=== PATIENT | female | born 1945 | race Caucasian/White ===

== ENCOUNTER → 2016-11-26 | Outpatient (CLI) | payer MEDICARE, BC, OTHER ==
[~2016-11-26] VITALS: Ht 154.9 cm; Wt 72.6 kg
[~2016-11-26] MED LIST: /NITR4TASL SL; AMIT50TA PO; ASPI1TAB PO; ASPI325T PO; ASPI81TA2 PO; BACL10TA2 PO; CLON0.5T PO; CLON2TAB PO; IMDU30TA PO; ISOS30TAB PO; LANS15TA3 PO; LEVOTAB10 PO; LIDOCAINE 2% INJ 100 MG/5 ML SDV (FOR ANES.) As Ordered ONE; LIPI80TA PO; LOPR50TA PO; MEGA RED PO; METO25TA4 PO; NITR4TASL SL; NS 1,000 ML IV ONE; OXYC15TA76 PO; PROPOFOL 200 MG/20 ML VIAL As Ordered ONE; RED600TA PO; WELL100T2 PO; thyroid medicine
--- NOTE | 2016-11-26 09:35 | ROOR ---
Patient Name: Anabel Bautista Procedure Date: 11/26/2016 9:09 AM Date of : 1945 Age: 70 Room: [facility] Gender: Female Note Status: Finalized Procedure: Upper GI endoscopy Indications: Dysphagia, Abnormal cine-esophagram Providers: Andrew SAEZ MD Referring MD: FIGUEROA CARDOZA MD Requesting Provider: Medicines: Monitored Anesthesia Care Complications: No immediate complications. Procedure: Pre-Anesthesia Assessment: - The heart rate, respiratory rate, oxygen saturations, blood pressure, adequacy of pulmonary ventilation, and response to care were monitored throughout the procedure. The Endoscope was introduced through the mouth, and advanced to the second part of duodenum. The upper GI endoscopy was accomplished without difficulty. The patient tolerated the procedure well. Findings: A widely patent Schatzki ring (acquired) was found at the gastroesophageal junction. A TTS dilator was passed through the scope. Dilation with a 15-16.5-18 mm balloon dilator was performed to 18 mm. The dilation site was examined and showed no change. This was biopsied with a cold forceps for histology. Mildly severe esophagitis was found at the gastroesophageal junction. Biopsies were taken with a cold forceps for histology. Mild inflammation characterized by erythema was found in the gastric antrum. Biopsies were taken with a cold forceps for histology. Small Hiatal Hernia. The examined duodenum was normal. Impression: - Widely patent Schatzki ring (of dubious significance). Dilated and Biopsied (to fracture ring). - Mildly severe distal esophagitis. Biopsied. - Mild Gastritis. Biopsied. - Small Hiatal Hernia. - Normal examined duodenum. Recommendation: - Telephone endoscopist for pathology results in 2 weeks. - Use Prilosec (omeprazole) 40 mg PO daily. - Observe patient's clinical course. Andrew Saez MD Andrew SAEZ MD 11/26/2016 9:35:21 AM This report has been signed electronically. Number of Addenda: 0 Note Initiated On: 11/26/2016 9:09 AM Estimated Blood Loss: Estimated blood loss: none.
[2016-11-26 10:05] VITALS: BP 155/64
== END | disposition home or self-care (01) ==
LOC: M OPP 07:47
PROVIDERS: ATTEND Internal Medicine Gastroenterology
DX: R93.3 Abnormal findings on diagnostic imaging of other parts of digestive tract (principal); R13.10 Dysphagia, unspecified; K22.2 Esophageal obstruction; K44.9 Diaphragmatic hernia without obstruction or gangrene; K20.9 Esophagitis, unspecified; K29.70 Gastritis, unspecified, without bleeding; K21.9 Gastro-esophageal reflux disease without esophagitis; R07.89 Other chest pain; I25.10 Atherosclerotic heart disease of native coronary artery without angina pectoris; E78.5 Hyperlipidemia, unspecified; I10 Essential (primary) hypertension; I72.8 Aneurysm of other specified arteries; E03.9 Hypothyroidism, unspecified; R12 Heartburn; R06.02 Shortness of breath; M19.90 Unspecified osteoarthritis, unspecified site; M54.9 Dorsalgia, unspecified; M32.9 Systemic lupus erythematosus, unspecified; R21 Rash and other nonspecific skin eruption; R51 Headache; Z78.0 Asymptomatic menopausal state; R06.83 Snoring; M72.2 Plantar fascial fibromatosis; Z95.1 Presence of aortocoronary bypass graft; Z88.2 Allergy status to sulfonamides; Z91.018 Allergy to other foods; Z91.010 Allergy to peanuts; Z79.82 Long term (current) use of aspirin; Z79.899 Other long term (current) drug therapy

== ENCOUNTER → 2017-02-17 | Outpatient (REF) | payer MEDICARE, BC, OTHER ==
[~2017-02-17] MED LIST changes: -LIDOCAINE 2% INJ 100 MG/5 ML SDV (FOR ANES.) As Ordered ONE; -NS 1,000 ML IV ONE; -PROPOFOL 200 MG/20 ML VIAL As Ordered ONE
== END ==
LOC: M LAB REF 16:05
PROVIDERS: ATTEND Physician Assistant
DX: R30.0 Dysuria (principal)

== ENCOUNTER 2017-10-20 08:15 | Emergency (ER) | payer MEDICARE, BC, OTHER ==
[2017-10-20 08:39] LABS: BASO % 0.5 % (0.0-1.0); EOS # 0.3 10^3/uL (0.0-0.50); HEMATOCRIT 42.3 % (36.0-47.0); HEMOGLOBIN 13.7 g/dl (12.0-15.5); IMMATURE GRANULOCYTE % 0.2 % (0-3.0); LYMPH # 2.8 10^3/uL (1.5-4.5); LYMPH % 33.3 % (24.0-44.0); MEAN CORPUSCULAR HEMOGLOBIN 21.8 pg (27.0-33.0); MEAN CORPUSCULAR HGB CONC 32.4 g/dl (32.0-36.5); MEAN CORPUSCULAR VOLUME 67.4 fl (80.0-96.0); MONO # 0.6 10^3/uL (0.0-0.8); MONO % 7.5 % (0.0-5.0); NEUTROPHILS # 4.6 10^3/uL (1.8-7.7); NEUTROPHILS % 55.5 % (36.0-66.0); PLATELET COUNT, AUTOMATED 203 10^3/uL (150-450); RED BLOOD COUNT 6.28 10^6/uL (4.00-5.40); RED CELL DISTRIBUTION WIDTH 21.8 % (11.5-14.5); WHITE BLOOD COUNT 8.3 10^3/uL (4.0-10.0)
[2017-10-20] MEDS: MORPHINE 2 MG/ML 1ML SYRINGE (J2270) IV (08:46)
[2017-10-20 08:48] LABS: INR 1.05; PROTHROMBIN TIME 13.8 SECONDS (12.4-14.5)
[2017-10-20 08:58] LABS: ALBUMIN 3.5 GM/DL (3.2-5.2); ALBUMIN/GLOBULIN RATIO 1.03 (1.00-1.93); ALKALINE PHOSPHATASE 84 U/L (45-117); ALT/SGPT 24 U/L (12-78); ANION GAP 9 MEQ/L (8-16); AST/SGOT 20 U/L (7-37); BILIRUBIN,DIRECT 0.2 MG/DL (0.0-0.2); BILIRUBIN,TOTAL 0.6 MG/DL (0.2-1.0); BLOOD UREA NITROGEN 8 MG/DL (7-18); CALCIUM LEVEL 8.7 MG/DL (8.8-10.2); CARBON DIOXIDE LEVEL 24 MEQ/L (21-32); CHLORIDE LEVEL 107 MEQ/L (98-107); CPK CREATINE PHOSPHOKINASE 34 U/L (26-192); CREATININE FOR GFR 0.79 MG/DL (0.55-1.30); GLOMERULAR FILTRATION RATE > 60.0 (>39); GLUCOSE, FASTING 90 MG/DL (70-100); POTASSIUM SERUM 4.2 MEQ/L (3.5-5.1); SODIUM LEVEL 140 MEQ/L (136-145); TOTAL PROTEIN 6.9 GM/DL (6.4-8.2); TROPONIN I < 0.02 NG/ML (< 0.10)
[2017-10-20 09:04] LABS: CK-MB VALUE MASS < 1.0 NG/ML (<3.6); MB/CK RELATIVE INDEX 2.94 (< OR =4); THYROID STIMULATING HORMONE 0.825 uIU/ML (0.358-3.740)
[2017-10-20] MEDS: ONDANSETRON 4MG/2ML VIAL (J2405) IV (09:23)
[2017-10-20] MEDS ORDERED: ISOVUE-370 76% 100ML VIAL (Q9967) As Ordered (10:16)
[2017-10-20 11:42] LABS: LIPASE 122 U/L (73-393)
[2017-10-20 14:21] LABS: CK-MB VALUE MASS < 1.0 NG/ML (<3.6); CPK CREATINE PHOSPHOKINASE 30 U/L (26-192); MB/CK RELATIVE INDEX 3.33 (< OR =4); TROPONIN I < 0.02 NG/ML (< 0.10)
[2017-10-20] MEDS: PERCOCET 5MG/325MG TAB PO (15:14)
== END 2017-10-20 15:15 | disposition home or self-care (01) ==
LOC: M ED 08:15
DX: R07.9 Chest pain, unspecified (principal); R00.1 Bradycardia, unspecified; I51.7 Cardiomegaly; I25.10 Atherosclerotic heart disease of native coronary artery without angina pectoris; I25.2 Old myocardial infarction; G89.29 Other chronic pain; M54.9 Dorsalgia, unspecified; Z95.1 Presence of aortocoronary bypass graft; Z82.49 Family history of ischemic heart disease and other diseases of the circulatory system; Z79.82 Long term (current) use of aspirin; Z79.899 Other long term (current) drug therapy; Z91.010 Allergy to peanuts; Z88.2 Allergy status to sulfonamides
CPT/HCPCS: J2405

== ENCOUNTER 2018-05-21 19:04 | Emergency (ER) | payer MEDICARE, BC, OTHER ==
[~2018-05-21 19:04] MED LIST changes: +AMIT10TA PO; +AMLO5TAB6 PO; +BUPR300T34 PO; -CLON0.5T PO; +CLON0.5T8 PO; +NITR0.3S4 SL; +OMEP40CA2 PO; +OXYC10TA12 PO
[2018-05-21] MEDS ORDERED: CLON0.5T8 (19:13)
[2018-05-21] MEDS ORDERED: GABA-843 (19:13)
[2018-05-21] MEDS ORDERED: hydrALAZINE INJ 20 MG/ML VIAL IV ONE ×2 (19:45→21:00)
[2018-05-21] MEDS ORDERED: GI COCKTAIL 50ML BTL(HYOSCYAMINE/MAALOX/LIDOCAINE VISCOUS)(1:3:1) PO ONE (19:45)
[2018-05-21 19:52] LABS: BASO # 0.1 10^3/uL (0.0-0.2); BASO % 0.7 % (0.0-1.0); EOS # 0.3 10^3/uL (0.0-0.50); EOS % 3.2 % (0.0-3.0); HEMATOCRIT 41.8 % (36.0-47.0); HEMOGLOBIN 13.3 g/dl (12.0-15.5); LYMPH # 3.2 10^3/uL (1.5-4.5); LYMPH % 32.7 % (24.0-44.0); MEAN CORPUSCULAR HEMOGLOBIN 21.2 pg (27.0-33.0); MEAN CORPUSCULAR HGB CONC 31.8 g/dl (32.0-36.5); MEAN CORPUSCULAR VOLUME 66.6 fl (80.0-96.0); MONO # 0.9 10^3/uL (0.0-0.8); MONO % 8.6 % (0.0-5.0); NEUTROPHILS # 5.4 10^3/uL (1.8-7.7); NEUTROPHILS % 54.4 % (36.0-66.0); PLATELET COUNT, AUTOMATED 222 10^3/uL (150-450); RED BLOOD COUNT 6.28 10^6/uL (4.00-5.40); WHITE BLOOD COUNT 9.9 10^3/uL (4.0-10.0)
--- NOTE | 2018-05-21 20:11 | REP ---
Chest x-ray: Two views. History: Chest pain. Comparison chest x-ray: October 20, 2017. Findings: Median sternotomy clamps are noted as before. The lungs are symmetrically aerated and free of infiltrate. Lesser level of inspiration on today's chest x-ray. Pleural angles are sharp. Heart size is normal. There are clips in the right upper quadrant. Impression: Lesser level of inspiration on today's PA chest x-ray. No acute disease. Electronically Signed by Wagner Paez MD 05/21/2018 08:02 P
[2018-05-21 20:23] LABS: BLOOD UREA NITROGEN 9 MG/DL (7-18); CALCIUM LEVEL 9.1 MG/DL (8.8-10.2); CARBON DIOXIDE LEVEL 25 MEQ/L (21-32); CHLORIDE LEVEL 104 MEQ/L (98-107); CPK CREATINE PHOSPHOKINASE 39 U/L (26-192); CREATININE FOR GFR 0.78 MG/DL (0.55-1.30); GLOMERULAR FILTRATION RATE > 60.0 (>39); GLUCOSE, FASTING 87 MG/DL (70-100); MB/CK RELATIVE INDEX 2.82 (< OR =4); NT-PRO BNP 201 PG/ML (<125); POTASSIUM SERUM 4.5 MEQ/L (3.5-5.1); SODIUM LEVEL 140 MEQ/L (136-145); TROPONIN I < 0.02 NG/ML (< 0.10)
[2018-05-21 21:11] VITALS: BP 182/86
[2018-05-21 21:45] VITALS: BP 137/64
[2018-05-21] MEDS ORDERED: FAMOTIDINE 20 MG TAB PO ONE (21:45)
--- NOTE | 2018-05-22 14:42 | ECGEPIP ---
Stationary ECG Study [facility] - ED Test Date: 2018-05-21 Pat Name: CORIE BRIGHT Department: Room: - Gender: F [employer]: af : 1945 Requested By: JESUS Soliz Order Number: [id number] Reading MD: Michelle Pringle Measurements Intervals [place] Rate: 52 P: 2 [place]: 148 QRS: -18 QRSD: 95 T: 48 QT: 423 QTc: 396 Interpretive Statements SINUS BRADYCARDIA MINIMAL VOLTAGE CRITERIA FOR LVH, CONSIDER NORMAL VARIANT INFERIOR MYOCARDIAL INFARCTION, OF INDETERMINATE AGE NSTTW ABNORMALITY SIMILAR 10/20/17 Electronically Signed On 05-22-2018 14:41:59 EST by Michelle Pringle
== END 2018-05-21 22:37 | disposition home or self-care (01) ==
LOC: M ED 19:04
DX: R07.9 Chest pain, unspecified (principal); R06.02 Shortness of breath; I10 Essential (primary) hypertension; I25.10 Atherosclerotic heart disease of native coronary artery without angina pectoris; M32.9 Systemic lupus erythematosus, unspecified; Z88.2 Allergy status to sulfonamides; Z88.8 Allergy status to other drugs, medicaments and biological substances

== ENCOUNTER 2019-05-04 17:34 | Inpatient (IN) | payer MEDICARE, BC, OTHER ==
[~2019-05-04] VITALS: Ht 154.9 cm; Wt 65.9 kg
[~2019-05-04 17:34] MED LIST changes: -/NITR4TASL SL; -ASPI1TAB PO; +ASPI81TA26 PO; +CLON0.5T2 PO; -CLON0.5T8 PO; +GABA-843; +NITR0.4S SL; -OMEP40CA2 PO; +OMEP40CA97 PO
[2019-05-04] MEDS ORDERED: LABETALOL HCL 100 MG/20 ML VIAL IV STA ×2 (18:23→18:59)
[2019-05-04] MEDS ORDERED: LABETALOL 100 MG TAB PO ONE (18:30)
[2019-05-04] MEDS: NS 1,000 ML IV SCH (18:48)
--- NOTE | 2019-05-04 19:14 | REPVR ---
PROCEDURE INFORMATION: Exam: CT Head Without Contrast Exam date and time: 05/04/2019 6:04 PM Age: 73 years old Clinical indication: Altered mental status/memory loss; Confusion or disorientation TECHNIQUE: Imaging protocol: Computed tomography of the head without contrast. Radiation optimization: All CT scans at this facility use at least one of these dose optimization techniques: automated exposure control; mA and/or kV adjustment per patient size (includes targeted exams where dose is matched to clinical indication); or iterative reconstruction. COMPARISON: CT Head without contrast 05/10/2012 10:55 PM FINDINGS: Brain: Mild volume loss. No hemorrhage. Unremarkable white matter for the patient's age. No mass effect. No evolving territorial infarct. Ventricles: No ventriculomegaly. Bones/joints: No acute fracture seen. Severe degenerative changes of the left temporomandibular joint. Sinuses: Visualized sinuses are unremarkable. No fluid levels. Mastoid air cells: Visualized mastoid air cells are well aerated. Soft tissues: Unremarkable. IMPRESSION: No acute intracranial abnormality seen. Electronically signed by: Elida Apple On 05/04/2019 19:14:08 PM
[2019-05-04] MEDS ORDERED: PILL CUTTER 1 EACH XX ONE (19:54)
[2019-05-04 20:11] LABS: BASO % 0.5 % (0.0-1.0); EOS # 0.1 10^3/uL (0.0-0.5); EOS % 0.8 % (0.0-3.0); HEMATOCRIT 40.9 % (36.0-47.0); HEMOGLOBIN 12.6 g/dl (12.0-15.5); LYMPH % 30.5 % (24.0-44.0); MEAN CORPUSCULAR HGB CONC 30.8 g/dl (32.0-36.5); MEAN CORPUSCULAR VOLUME 68.3 fl (80.0-96.0); MONO # 0.5 10^3/uL (0.0-0.8); MONO % 6.8 % (0.0-5.0); NEUTROPHILS # 4.1 10^3/uL (1.5-8.5); NEUTROPHILS % 60.9 % (36.0-66.0); PLATELET COUNT, AUTOMATED 120 10^3/uL (150-450); RED BLOOD COUNT 5.99 10^6/uL (4.00-5.40); WHITE BLOOD COUNT 6.6 10^3/uL (4.0-10.0)
[2019-05-04 21:00] LABS: AMPHETAMINES LEVEL URINE NEGATIVE (NEGATIVE); BARBITURATES URINE NEGATIVE (NEGATIVE); BENZODIAZEPINES URINE NEGATIVE (NEGATIVE); CANNABINOIDS URINE NEGATIVE (NEGATIVE); COCAINE METABOLITE URINE NEGATIVE (NEGATIVE); METHADONE URINE NEGATIVE (NEGATIVE); OPIATES URINE POSITIVE (NEGATIVE); PHENCYCLIDINE URINE NEGATIVE (NEGATIVE)
[2019-05-04 21:00] LABS: ACETAMINOPHEN LEVEL 6.9 UG/ML (10.0-30.0); ALBUMIN 3.1 GM/DL (3.2-5.2); ALT/SGPT 31 U/L (12-78); BILIRUBIN,DIRECT 0.2 MG/DL (0.0-0.2); BILIRUBIN,TOTAL 0.6 MG/DL (0.2-1.0); BLOOD UREA NITROGEN 12 MG/DL (7-18); CALCIUM LEVEL 7.8 MG/DL (8.8-10.2); CARBON DIOXIDE LEVEL 23 MEQ/L (21-32); CHLORIDE LEVEL 109 MEQ/L (98-107); CK-MB VALUE MASS 1.4 NG/ML (<3.6); CPK CREATINE PHOSPHOKINASE 26 U/L (26-192); CREATININE FOR GFR 0.68 MG/DL (0.55-1.30); GLOMERULAR FILTRATION RATE > 60.0 (>39); GLUCOSE, FASTING 87 MG/DL (70-100); MB/CK RELATIVE INDEX 5.38 (< OR =4); POTASSIUM SERUM 3.6 MEQ/L (3.5-5.1); SALICYLATE LEVEL < 1.7 MG/DL (5.0-30.0); SODIUM LEVEL 140 MEQ/L (136-145); THYROID STIMULATING HORMONE 0.568 uIU/ML (0.358-3.740); TROPONIN I < 0.02 NG/ML (< 0.10)
[2019-05-04] MEDS ORDERED: BACLOFEN 10 MG TAB PO SCH (21:00)
[2019-05-04] MEDS ORDERED: TOPIRAMATE (TopAMAX) 25 MG TAB PO SCH (21:00)
[2019-05-04] MEDS ORDERED: AMITRIPTYLINE 10 MG TAB PO SCH (21:00)
[2019-05-04 21:01] LABS: ETHYL ALCOHOL (ETHANOL) < 0.003 % (0.000-0.010)
[2019-05-04] MEDS ORDERED: VITA1CAP25 PO (22:44)
[2019-05-04] MEDS ORDERED: DOXY100T27 PO (22:44)
[2019-05-04] MEDS ORDERED: TOPI25TA10 PO (22:44)
[2019-05-04] MEDS ORDERED: AMLO10TA5 PO (22:44)
[2019-05-04] MEDS ORDERED: DULO30CA9 PO (22:44)
[2019-05-05] MEDS ORDERED: oxyCODONE 5MG TAB PO PRN ×2 (00:30→11:45)
--- NOTE | 2019-05-05 01:04 | HPEPDOC ---
[facility] Medical History & Physical Date of Admission May 05, 2019 Date of Service: May 05, 2019 Attending Physician: BERKLEY CHIN MD History and Physical CHIEF COMPLAINT: Confusion HISTORY OF PRESENT ILLNESS: 73-year-old female with past medical history of hypertension, presents from home with confusion. Patient is a poor historian and confused at this time, daughter is no longer at bedside, information obtained from chart and emergency department staff. Patient is aware about her confusion, doesn't remember when it started, denies any recent changes to her health other than a fall she sustained one month ago and injured her nose. She denies any shortness of breath, chest pain, nausea, vomiting, abdominal pain or diarrhea. In the ED, CT head is negative for acute pathology. 10 point review of system is negative except for above PAST MEDICAL HISTORY: 1. Hypertension. PAST SURGICAL HISTORY: 1. Hysterectomy. 2. Cholecystectomy. SOCIAL HISTORY: Never smoker. Denies alcohol use. Denies drug use FAMILY HISTORY: Positive for heart disease ALLERGIES: Please see below. HOME MEDICATIONS: Please see below. PHYSICAL EXAMINATION: VITAL SIGNS: Please see below. GENERAL: No distress HEENT: Normocephalic, atraumatic, moist mucous membranes NECK: Supple CARDIOVASCULAR EXAMINATION: S1, S2, no murmurs RESPIRATORY EXAMINATION: Scattered rhonchi, no wheezing ABDOMINAL EXAMINATION: Soft, nontender, nondistended, positive bowel sounds EXTREMITIES: Range of motion intact SKIN: No rash NEUROLOGICAL EXAMINATION: Alert and oriented 2, no focal deficits PSYCHIATRIC EXAMINATION: Calm and cooperative LABORATORY DATA: See below. IMAGING: CT head negative for acute pathology MICROBIOLOGY: Please see below. ASSESSMENT: 73-year-old female with past medical history of hypertension pre sents from home with confusion. PLAN: 1. Confusion. Unknown etiology, blood work within normal limits, UA not suggestive of infection, vitals stable, CT head negative, pro-calcitonin and blood cultures ordered. Possibly medication related, on opioids and benzos, will hold oxycodone for now. 2. Hypertension. Continue Norvasc and metoprolol DVT prophylaxis: Heparin subcutaneous GI prophylaxis: Not needed Vital Signs Vital Signs Date Time Temp Pulse Resp B/P (MAP) Pulse Ox O2 Delivery O2 Flow Rate FiO2 05/04/19 23:45 62 170/86 (114) 97 05/04/19 23:29 98.0 05/04/19 22:45 Room Air 05/04/19 17:58 16 Laboratory Data Labs 24H Laboratory Tests 2 05/04/19 18:11: Bedside Glucose (Misc Panel) 132H 05/04/19 20:03: Immature Granulocyte % (Auto) 0.5, Neutrophils (%) (Auto) 60.9, Lymphocytes (%) (Auto) 30.5, Monocytes (%) (Auto) 6.8H, Eosinophils (%) (Auto) 0.8, Basophils (%) (Auto) 0.5, Neutrophils # (Auto) 4.1, Lymphocytes # (Auto) 2.0, Monocytes # (Auto) 0.5, Eosinophils # (Auto) 0.1, Basophils # (Auto) 0.0, Nucleated Red Blood Cells % (auto) 0.0, Anion Gap 8, Glomerular Filtration Rate > 60.0, Calcium Level 7.8L, Total Bilirubin 0.6, Direct Bilirubin 0.2, Aspartate Amino Transf (AST/SGOT) 21, Alanine Aminotransferase (ALT/SGPT) 31, Alkaline Phosphatase 99, Ammonia < 10, Total Creatine Kinase 26, Creatine Kinase MB 1.4, Creatine Kinase MB Relative Index 5.38H, Troponin I < 0.02, Total Protein 6.0L, Albumin 3.1L, Albumin/Globulin Ratio 1.07, Thyroid Stimulating Hormone (TSH) 0.568, Salicylates Level < 1.7L, Acetaminophen Level 6.9L, Ethyl Alcohol Level < 0.003 05/04/19 20:15: Urine Color YELLOW, Urine Appearance CLEAR, Urine pH 7.0, Urine Specific [place] 1.005, Urine Protein NEGATIVE, Urine Glucose (UA) NEGATIVE, Urine Ketones NEGATIVE, Urine Blood NEGATIVE, Urine Nitrite NEGATIVE, Urine Bilirubin NEGATIVE, Urine Urobilinogen 0.2, Urine Leukocyte Esterase NEGATIVE, Urine WBC (Auto) 1, Urine RBC (Auto) 2, Urine Hyaline Casts (Auto) 0, Urine Bacteria (Auto) NEGATIVE, Urine Squamous Epithelial Cells 0, Urine Amorphous Sediment SMALLH, Urine Sperm (Auto) , Urine Opiates Screen POSITIVEH, Urine Methadone Screen NEGATIVE, Urine Barbiturates Screen NEGATIVE, Urine Phencyclidine Screen NEGATIVE, Urine Amphetamines Screen NEGATIVE, Urine Benzodiazepines Screen NEGATIVE, Urine Cocaine Metabolite Screen NEGATIVE, Urine Cannabinoids Screen NEGATIVE CBC/BMP Laboratory Tests 05/04/19 20:03 Home Medications Scheduled Amitriptyline HCl (Amitriptyline HCl) 10 Mg Tab, 10 MG PO QHS Amlodipine Besylate (Amlodipine Besylate) 10 Mg Tablet, 10 MG PO DAILY Baclofen (Baclofen) 10 Mg Tab, 10 MG PO QHS Cholecalciferol (Vitamin D3) (Vitamin D3) 50,000 Unit Capsule, 50,000 UNIT PO 1XWK TAKES ON TUESDAY Clonazepam (Clonazepam) 0.5 Mg Tab, 0.5 MG PO BID Doxycycline Monohydrate (Doxycycline Monohydrate) 100 Mg Tablet, 100 MG PO BID Duloxetine Hcl (Duloxetine HCl) 30 Mg Capsule.dr, 30 MG PO DAILY Metoprolol Tartrate (Metoprolol Tartrate) 25 Mg Tab, 25 MG PO BID Topiramate (Topiramate) 25 Mg Tablet, 50 MG PO QHS Scheduled PRN Nitroglycerin (Nitrostat) 0.4 Mg Subl, 0.4 MG SL PRN PRN for CHEST PAIN Oxycodone HCl (Oxycodone HCl) 10 Mg Tab, 10 MG PO QID PRN for pain Allergies Coded Allergies: Sulfa (Sulfonamide Antibiotics) (Verified Allergy, Unknown, 05/04/19) peanut (Verified Allergy, Unknown, 05/04/19) A-FIB/CHADSVASC A-FIB History Current/History of A-Fib/PAF?: No BERKLEY CHIN MD May 05, 2019 01:04
[2019-05-05] MEDS ORDERED: hydrALAZINE INJ 20 MG/ML VIAL IV STA (02:19)
[2019-05-05] MEDS ORDERED: ONDANSETRON 4MG/2ML VIAL (J2405) IV ONE (02:30)
[2019-05-05 04:00] VITALS: BP 182/80
[2019-05-05] MEDS: NS 1,000 ML IV SCH (04:32)
[2019-05-05 05:31] LABS: ALBUMIN 3.3 GM/DL (3.2-5.2); ALT/SGPT 30 U/L (12-78); BILIRUBIN,TOTAL 0.7 MG/DL (0.2-1.0); BLOOD UREA NITROGEN 12 MG/DL (7-18); CALCIUM LEVEL 8.8 MG/DL (8.8-10.2); CARBON DIOXIDE LEVEL 22 MEQ/L (21-32); CHLORIDE LEVEL 108 MEQ/L (98-107); CREATININE FOR GFR 0.85 MG/DL (0.55-1.30); GLOMERULAR FILTRATION RATE > 60.0 (>39); GLUCOSE, FASTING 98 MG/DL (70-100); HEMATOCRIT 39.9 % (36.0-47.0); HEMOGLOBIN 12.8 g/dl (12.0-15.5); MAGNESIUM LEVEL 1.8 MG/DL (1.8-2.4); MEAN CORPUSCULAR HEMOGLOBIN 21.5 pg (27.0-33.0); MEAN CORPUSCULAR HGB CONC 32.1 g/dl (32.0-36.5); MEAN CORPUSCULAR VOLUME 67.1 fl (80.0-96.0); PLATELET COUNT, AUTOMATED 152 10^3/uL (150-450); POTASSIUM SERUM 3.4 MEQ/L (3.5-5.1); RED BLOOD COUNT 5.95 10^6/uL (4.00-5.40); SODIUM LEVEL 139 MEQ/L (136-145); TOTAL PROTEIN 6.6 GM/DL (6.4-8.2); WHITE BLOOD COUNT 8.8 10^3/uL (4.0-10.0)
[2019-05-05] MEDS ORDERED: HEPARIN SOD (PORCINE) 5000 UNITS/ML VIAL SC SCH (06:00)
[2019-05-05] MEDS ORDERED: POTASSIUM CHLORIDE 10 MEQ SR TABLET PO ONE (06:00)
[2019-05-05] MEDS ORDERED: amLODIPine 10 MG TAB PO SCH ×2 (07:45→09:00)
[2019-05-05 08:00] VITALS: BP 184/80
[2019-05-05] MEDS ORDERED: lisinopriL 5 MG TAB PO SCH (09:00)
[2019-05-05] MEDS ORDERED: PREVNAR 13 VACCINE SYRINGE (CPT CODE:90670) IM ONE (09:00)
[2019-05-05] MEDS ORDERED: METOPROLOL TART 25 MG TABLET PO SCH (09:00)
[2019-05-05] MEDS ORDERED: lisinopriL 10 MG TAB PO SCH (09:00)
[2019-05-05] MEDS ORDERED: clonazePAM 0.5 MG TAB PO SCH (09:00)
[2019-05-05 10:57] VITALS: BP 175/77
--- NOTE | 2019-05-05 11:15 | IPNPDOC ---
Date Seen The patient was seen on 05/05/19. Progress Note SUBJECTIVE: Patient reports she feels better this morning. She is no longer confused as she was when she was admitted. She thinks it is related to her recent antibiotic use for soft tissue infection of the arm. Her blood pressure remains elevated with systolic in the 180s this morning, despite having gotten her blood pressure medications at the same doses from home. She has a headache. She denies any dizziness, lightheadedness at this time. She was found to be positive for coronavirus. OBJECTIVE PHYSICAL EXAMINATION: VITAL SIGNS: Please see below. GENERAL APPEARANCE: Laying in bed, appears stated age, no acute distress, calm, cooperative HEENT: EOMI, PERRLA, neck is supple with no thyromegaly or lymphadenopathy RESPIRATORY: Lungs are clear to auscultation bilaterally with no adventitious breath sounds appreciated CARDIOVASCULAR: no JVD, RRR, no murmurs/rubs/gallops ABDOMEN: Soft, nontender to palpation in all four quadrants, no masses/organomegaly EXTREMITIES: no clubbing, cyanosis or edema noted NEUROLOGICAL: No obvious focal deficits PSYCHIATRIC: normal mood/affect Skin: No rashes or ulcers. LN: No significant cervical or inguinal lymphadenopathy LABORATORY DATA, IMAGING STUDIES, MICROBIOLOGY: Please see below. Echocardiogram: none DVT prophylaxis ordered?: [facility] ASSESSMENT AND PLAN: This is a 73-year-old woman who presented with acute confusion, found to have hypertensive emergency and positive for coronavirus. She has been admitted to the PCU for close observation and blood pressure management. PROBLEMS: 1. Confusion, likely secondary to hypertensive emergency versus recent antibiotic use: -Head CT negative on admission -All blood work within normal limits -Blood pressure elevated in the 180s systolic, we will add lisinopril 10 mg today and will monitor blood pressure closely. Unknown what her blood pressure is at home, although she reports she is usually hypotensive. -Confusion also likely secondary to home medications including oxycodone, clonazepam, baclofen and amitriptyline. She will need outpatient PCP follow-up for medication review -patient reports she had been on doxycycline for soft tissue infection and was not feeling well when she started taking it. Could indicate allergy to doxycycline. 2. Hypertensive emergency: Blood pressure was found to be 222/97 on admission and has come down to 180s to 190s systolic -Continue home Lopressor 25 mg daily, amlodipine 10 mg daily, added lisinopril 10 mg daily 3. Hypokalemia: -Potassium found to be 3.4 today. She was replaced with oral potassium. 4. Chronic headaches/migraines: -Continue home Topomax 5. Coronavirus: -Symptomatic treatment as needed DISPOSITION: Pending BP improvement. Possible discharge home later today. VS, I&O, 24H, Fishbone Vital Signs/I&O Vital Signs Date Time Temp Pulse Resp B/P (MAP) Pulse Ox O2 Delivery O2 Flow Rate FiO2 05/05/19 08:48 63 184/80 05/05/19 08:00 97.2 16 97 Room Air I&O- Last 24 Hours up to 6 AM 05/05/19 06:00 Intake Total 800 ml Output Total 325 ml Balance 475 ml Laboratory Data 24H LABS Laboratory Tests 2 05/04/19 18:11: Bedside Glucose (Misc Panel) 132H 05/04/19 20:03: Immature Granulocyte % (Auto) 0.5, Neutrophils (%) (Auto) 60.9, Lymphocytes (%) (Auto) 30.5, Monocytes (%) (Auto) 6.8H, Eosinophils (%) (Auto) 0.8, Basophils (%) (Auto) 0.5, Neutrophils # (Auto) 4.1, Lymphocytes # (Auto) 2.0, Monocytes # (Auto) 0.5, Eosinophils # (Auto) 0.1, Basophils # (Auto) 0.0, Nucleated Red Blood Cells % (auto) 0.0, Anion Gap 8, Glomerular Filtration Rate > 60.0, Calcium Level 7.8L, Total Bilirubin 0.6, Direct Bilirubin 0.2, Aspartate Amino Transf (AST/SGOT) 21, Alanine Aminotransferase (ALT/SGPT) 31, Alkaline Phosphatase 99, Ammonia < 10, Total Creatine Kinase 26, Creatine Kinase MB 1.4, Creatine Kinase MB Relative Index 5.38H, Troponin I < 0.02, Total Protein 6.0L, Albumin 3.1L, Albumin/Globulin Ratio 1.07, Thyroid Stimulating Hormone (TSH) 0.568, Salicylates Level < 1.7L, Acetaminophen Level 6.9L, Ethyl Alcohol Level < 0.003 05/04/19 20:15: Urine Color YELLOW, Urine Appearance CLEAR, Urine pH 7.0, Urine Specific [place] 1.005, Urine Protein NEGATIVE, Urine Glucose (UA) NEGATIVE, Urine Ketones NEGATIVE, Urine Blood NEGATIVE, Urine Nitrite NEGATIVE, Urine Bilirubin NEGATIVE, Urine Urobilinogen 0.2, Urine Leukocyte Esterase NEGATIVE, Urine WBC (Auto) 1, Urine RBC (Auto) 2, Urine Hyaline Casts (Auto) 0, Urine Bacteria (Auto) NEGATIVE, Urine Squamous Epithelial Cells 0, Urine Amorphous Sediment SMALLH, Urine Sperm (Auto) , Urine Opiates Screen POSITIVEH, Urine Methadone Screen NEGATIVE, Urine Barbiturates Screen NEGATIVE, Urine Phencyclidine Screen NEGATIVE, Urine Amphetamines Screen NEGATIVE, Urine Benzodiazepines Screen NEGATIVE, Urine Cocaine Metabolite Screen NEGATIVE, Urine Cannabinoids Screen NEGATIVE 05/05/19 01:14: 05/05/19 04:55: Nucleated Red Blood Cells % (auto) 0.0, Anion Gap 9, Glomerular Filtration Rate > 60.0, Calcium Level 8.8, Magnesium Level 1.8, Total Bilirubin 0.7, Aspartate Amino Transf (AST/SGOT) 20, Alanine Aminotransferase (ALT/SGPT) 30, Alkaline [place] sphatase 99, Total Protein 6.6, Albumin 3.3, Albumin/Globulin Ratio 1.00 CBC/BMP Laboratory Tests 05/04/19 20:03 05/05/19 04:55 Microbiology Microbiology 05/05/19 Respiratory Virus Panel (PCR) ([facility]) - Final, Complete Coronavirus Hku1 05/05/19 Blood Culture, Received Pending GME ATTESTATION GME ATTESTATION My faculty preceptor for this patient encounter was physically present during the encounter and was fully available. All aspects of the patient interview, examination, medical decision making process, and medical care plan development were reviewed and approved by the faculty preceptor. The faculty preceptor is aware and concurs with the plan as stated in the body of this note and will attest to such by his/her cosignature. ATTENDING NOTE I have personally evaluated and examined the patient. Discussed with resident/student regarding plan of care and agree with the above assessment and plan. MOSES MACKENZIE MD May 05, 2019 11:15 JACKI WOMACK MD May 05, 2019 11:23
[2019-05-05 12:00] VITALS: BP 196/82
[2019-05-05] MEDS ORDERED: SLF 3 ML SYR IV PRN (12:30)
[2019-05-05 13:24] VITALS: BP 162/80
[2019-05-05] MEDS ORDERED: SLF 3 ML SYR IV SCH (14:00)
[2019-05-05 14:53] VITALS: BP 160/68
[2019-05-05] MEDS ORDERED: LISI10TA4 PO (15:31)
--- NOTE | 2019-05-05 16:42 | DS.PDOC ---
Discharge Summary General Date of Admission May 04, 2019 at 23:53 Date of Discharge 05/05/2019 Primary Care Physician: Rula Carmona Attending Physician: JACKI WOMACK MD Discharge Summary PROCEDURES PERFORMED DURING STAY: None. ADMITTING DIAGNOSES: 1. Confusion 2. Hypertension DISCHARGE DIAGNOSES: 1. Confusion, resolved 2. Hypertension COMPLICATIONS/CHIEF COMPLAINT: Confusion HISTORY OF PRESENT ILLNESS: 73-year-old female who presented to the emergency Department home with confusion. The patient was confused at time of admission and was a poor historian. The patient was aware that she was confused and could not recall started. She denies any recent changes to her health other than a fall she sustained about one month ago with the only injury occurring to her nose. During evaluation in the emergency department, CT of the head was negative for any acute pathology. HOSPITAL COURSE: Patient was admitted to the hospital for further monitoring and workup. No clear source of infection was found. Her home oxycodone was held to make sure this was not contributing to her confusion. She was found to be hypertensive with systolic blood pressures in the 180s, despite receiving her home doses of Lopressor and amlodipine. The patient was additionally started on lisinopril with improvement of her systolic blood pressures to the 160s. Her confusion did resolve and did not recur during her admission. Upon discharge, the patient was instructed to continue to take lisinopril daily at home in addition to her regular blood pressure medicines. On the day of discharge, the patient was found to be stable and safe for discharge home with follow up with her PCP to further manage her blood pressure. DISCHARGE MEDICATIONS: Please see below. ALLERGIES: Please see below. PHYSICAL EXAMINATION ON DISCHARGE: VITAL SIGNS: Please see below. GENERAL APPEARANCE: Laying in bed, appears stated age, no acute distress, calm, cooperative HEENT: EOMI, PERRLA, neck is supple with no thyromegaly or lymphadenopathy RESPIRATORY: Lungs are clear to auscultation bilaterally with no adventitious breath sounds appreciated CARDIOVASCULAR: no JVD, RRR, no murmurs/rubs/gallops ABDOMEN: Soft, nontender to palpation in all four quadrants, no masses/organomegaly EXTREMITIES: no clubbing, cyanosis or edema noted NEUROLOGICAL: No obvious focal deficits PSYCHIATRIC: normal mood/affect Skin: No rashes or ulcers. LN: No significant cervical or inguinal lymphadenopathy LABORATORY DATA: Please see below. IMAGING: as reported by radiologist -Head CT 05/04: No acute intracranial abnormality seen. PROGNOSIS: Fair ACTIVITY: As tolerated DIET: As tolerated DISCHARGE PLAN: Home DISPOSITION: 01 Home, Self-Care. DISCHARGE INSTRUCTIONS: 1. Please follow up with PCP within 7 days for BP management. ITEMS TO FOLLOWUP ON ON OUTPATIENT: 1. Hypertension management DISCHARGE CONDITION: Stable. TIME SPENT ON DISCHARGE: 35 minutes. I have personally evaluated and examined the patient. Discussed with resident/student regarding plan of care and agree with the above assessment and plan. Vital Signs/I&Os Vital Signs Date Time Temp Pulse Resp B/P (MAP) Pulse Ox O2 Delivery O2 Flow Rate FiO2 05/05/19 14:53 160/68 (98) 05/05/19 12:44 18 05/05/19 12:00 97.9 60 98 Room Air I&O- Last 24 Hours up to 6 AM 05/05/19 06:00 Intake Total 800 ml Output Total 325 ml Balance 475 ml Laboratory Data Labs 24H Laboratory Tests 2 05/04/19 18:11: Bedside Glucose (Misc Panel) 132H 05/04/19 20:03: Immature Granulocyte % (Auto) 0.5, Neutrophils (%) (Auto) 60.9, Lymphocytes (%) (Auto) 30.5, Monocytes (%) (Auto) 6.8H, Eosinophils (%) (Auto) 0.8, Basophils (%) (Auto) 0.5, Neutrophils # (Auto) 4.1, Lymphocytes # (Auto) 2.0, Monocytes # (Auto) 0.5, Eosinophils # (Auto) 0.1, Basophils # (Auto) 0.0, Nucleated Red Blood Cells % (auto) 0.0, Anion Gap 8, Glomerular Filtration Rate > 60.0, Calcium Level 7.8L, Total Bilirubin 0.6, Direct Bilirubin 0.2, Aspartate Amino Transf (AST/SGOT) 21, Alanine Aminotransferase (ALT/SGPT) 31, Alkaline Phosphatase 99, Ammonia < 10, Total Creatine Kinase 26, Creatine Kinase MB 1.4, Creatine Kinase MB Relative Index 5.38H, Troponin I < 0.02, Total Protein 6.0L, Albumin 3.1L, Albumin/Globulin Ratio 1.07, Thyroid Stimulating Hormone (TSH) 0.568, Salicylates Level < 1.7L, Acetaminophen Level 6.9L, Ethyl Alcohol Level < 0.003 05/04/19 20:15: Urine Color YELLOW, Urine Appearance CLEAR, Urine pH 7.0, Urine Specific [place] 1.005, Urine Protein NEGATIVE, Urine Glucose (UA) NEGATIVE, Urine Ketones NEGATIVE, Urine Blood NEGATIVE, Urine Nitrite NEGATIVE, Urine Bilirubin NEGATIVE, Urine Urobilinogen 0.2, Urine Leukocyte Esterase NEGATIVE, Urine WBC (Auto) 1, Urine RBC (Auto) 2, Urine Hyaline Casts (Auto) 0, Urine Bacteria (Auto) NEGATIVE, Urine Squamous Epithelial Cells 0, Urine Amorphous Sediment SMALLH, Urine Sperm (Auto) , Urine Opiates Screen POSITIVEH, Urine Methadone Screen NEGATIVE, Urine Barbiturates Screen NEGATIVE, Urine Phencyclidine Screen NEGATIVE, Urine Amphetamines Screen NEGATIVE, Urine Benzodiazepines Screen NEGATIVE, Urine Cocaine Metabolite Screen NEGATIVE, Urine Cannabinoids Screen NEGATIVE 05/05/19 01:14: 05/05/19 04:55: Nucleated Red Blood Cells % (auto) 0.0, Anion Gap 9, Glomerular Filtration Rate > 60.0, Calcium Level 8.8, Magnesium Level 1.8, Total Bilirubin 0.7, Aspartate Amino Transf (AST/SGOT) 20, Alanine Aminotransferase (ALT/SGPT) 30, Alkaline Phosphatase 99, Total Protein 6.6, Albumin 3.3, Albumin/Globulin Ratio 1.00 CBC/BMP Laboratory Tests 05/04/19 20:03 05/05/19 04:55 FSBS Laboratory Tests Test 05/04/19 18:11 Range/Units Bedside Glucose (Misc Panel) 132 83-110 MG/DL Microbiology Microbiology 05/05/19 Respiratory Virus Panel (PCR) ([facility]) - Final, Complete Coronavirus Hku1 05/05/19 Blood Culture, Received Pending Discharge Medications Scheduled Amitriptyline HCl (Amitriptyline HCl) 10 Mg Tab, 10 MG PO QHS, (Reported) Amlodipine Besylate (Amlodipine Besylate) 10 Mg Tablet, 10 MG PO DAILY, (Reported) Baclofen (Baclofen) 10 Mg Tab, 10 MG PO QHS, (Reported) Cholecalciferol (Vitamin D3) (Vitamin D3) 50,000 Unit Capsule, 50,000 UNIT PO 1XWK, (Reported) TAKES ON TUESDAY Clonazepam (Clonazepam) 0.5 Mg Tab, 0.5 MG PO BID, (Reported) Duloxetine Hcl (Duloxetine HCl) 30 Mg Capsule.dr, 30 MG PO DAILY, (Reported) Lisinopril (Lisinopril) 10 Mg Tablet, 10 MG PO DAILY Metoprolol Tartrate (Metoprolol Tartrate) 25 Mg Tab, 25 MG PO BID, (Reported) Topiramate (Topiramate) 25 Mg Tablet, 50 MG PO QHS, (Reported) Scheduled PRN Nitroglycerin (Nitrostat) 0.4 Mg Subl, 0.4 MG SL PRN PRN for CHEST PAIN, (Report ed) Oxycodone HCl (Oxycodone HCl) 10 Mg Tab, 10 MG PO QID PRN for pain, (Reported) Allergies Coded Allergies: Sulfa (Sulfonamide Antibiotics) (Verified Allergy, Unknown, 05/04/19) peanut (Verified Allergy, Unknown, 05/04/19) LORRI KLEIN D.O. May 05, 2019 16:42 JACKI WOMACK MD May 06, 2019 09:15
--- NOTE | 2019-05-06 15:13 | ECGEPIP ---
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
== END 2019-05-05 16:02 | disposition home or self-care (01) | DRG 305 ==
LOC: M ED 17:34 → M ED INP 23:53 → M PCU 05-05 04:37
PROVIDERS: ADMIT Internal Medicine; ATTEND Student in an Organized Health Care Education/Training Program
DX: I16.1 Hypertensive emergency (principal); R41.0 Disorientation, unspecified; B97.29 Other coronavirus as the cause of diseases classified elsewhere; Z79.899 Other long term (current) drug therapy; Z88.2 Allergy status to sulfonamides; Z91.010 Allergy to peanuts; E87.6 Hypokalemia; G43.909 Migraine, unspecified, not intractable, without status migrainosus

== ENCOUNTER → 2019-06-19 | Outpatient (REF) | payer MEDICARE, OTHER ==
[~2019-06-19] MED LIST changes: +AMLO10TA5 PO; -BUPR300T34 PO; +BUPR300T92 PO; +DOXY100T27 PO; +DULO30CA9 PO; +LISI10TA4 PO; +TOPI25TA10 PO; +VITA1CAP25 PO
== END ==
LOC: M LAB REF 17:17
PROVIDERS: ATTEND Nurse Practitioner Adult Health
DX: I25.10 Atherosclerotic heart disease of native coronary artery without angina pectoris (principal); M15.9 Polyosteoarthritis, unspecified

== ENCOUNTER → 2019-07-18 | Outpatient (REF) | payer MEDICARE, OTHER | LOC: M LAB REF 16:01 | PROVIDERS: ATTEND Nurse Practitioner Adult Health | DX: I25.10 Atherosclerotic heart disease of native coronary artery without angina pectoris (principal); R07.9 Chest pain, unspecified ==

== ENCOUNTER → 2020-02-04 | Outpatient (CLI) | payer MEDICARE, BC, OTHER ==
[~2020-02-04] MED LIST changes: -AMLO10TA5 PO; +AMLO1TAB24 PO; +AMLO1TAB25 PO; -AMLO5TAB6 PO; +CLOP75TA2; +ECOT81TA5 PO; +HYDR-3719; +ISOS60TA2 PO; +OMEP-221; +OXYC-1 PO; -OXYC15TA76 PO; +REPA140I2; +SING10TA32 PO; +VITA50005
--- NOTE | 2020-02-14 06:35 | REP ---
GASTRIC EMPTYING NUCLEAR SCINTIGRAPHY HISTORY: Abdominal distention. Early satiety. TECHNIQUE: 1.06 mCi of Technetium-99m sulfur colloid is ingested in two scrambled eggs with 6 ounces of water and sequential anterior and posterior abdominal images are acquired. Regions of interest are drawn around the stomach to plot gastric emptying. RESULTS: Expected T1/2 is 90 minutes. 54% gastric emptying was observed during the 89 minute observation for a calculated T1/2 of 72 minutes. IMPRESSION: Normal gastric emptying. MTDD
== END ==
LOC: M RAD 01-28 08:16
PROVIDERS: ATTEND Physician Assistant Medical
DX: R14.0 Abdominal distension (gaseous) (principal); R68.81 Early satiety
CPT/HCPCS: 78264; A9541

== ENCOUNTER → 2020-02-16 | Outpatient (CLI) | payer MEDICARE, BC, OTHER | LOC: M LABSMTC 11:22 | PROVIDERS: ATTEND Anesthesiology | DX: Z01.812 Encounter for preprocedural laboratory examination (principal); Z20.828 Contact with and (suspected) exposure to other viral communicable diseases | CPT/HCPCS: C9803; U0003 ==

== ENCOUNTER 2020-02-21 13:22 | Day surgery (SDC) | payer MEDICARE, BC, OTHER ==
[~2020-02-21] VITALS: Ht 154.9 cm; Wt 73.4 kg
[~2020-02-21 13:22] MED LIST changes: +LIDOCAINE 2% 100MG/5ML SDV (FOR ANES.) As Ordered ONE; +NS 1,000 ML IV ONE; +propofoL 200 MG/20 ML VIAL As Ordered ONE
--- NOTE | 2020-02-21 15:15 | ROOR ---
Patient Name: Anabel Bautista Procedure Date: 02/21/2020 2:58 PM Date of : 1945 Age: 74 Room: [facility] Gender: Female Note Status: Finalized Procedure: Upper GI endoscopy Indications: Surveillance for malignancy due to personal history of Roy's esophagus Providers: Andrew SAEZ MD Referring MD: Rula Carmona NP Requesting Provider: Medicines: Monitored Anesthesia Care Complications: No immediate complications. Procedure: Pre-Anesthesia Assessment: - The heart rate, respiratory rate, oxygen saturations, blood pressure, adequacy of pulmonary ventilation, and response to care were monitored throughout the procedure. The Endoscope was introduced through the mouth, and advanced to the second part of duodenum. The upper GI endoscopy was accomplished without difficulty. The patient tolerated the procedure well. Findings: The Z-line was variable and was found 38 cm from the incisors. This was biopsied with a cold forceps for evaluation to rule out Roy's Esophagus. The examined esophagus was normal. Small Hiatal Hernia. The entire examined stomach was normal. The examined duodenum was normal. Impression: - Normal esophagus. Z-line variable, 38 cm from the incisors. Biopsied. - Normal stomach with a very small, intermittent hiatal hernia. - Normal examined duodenum. Recommendation: - Observe patient's clinical course. - Continue present medications. - Repeat upper endoscopy in 3 - 5 years for surveillance of Roy's esophagus. Andrew Saez MD Andrew SAEZ MD 02/21/2020 3:15:13 PM Electronically signed by Andrew SAEZ MD Number of Addenda: 0 Note Initiated On: 02/21/2020 2:58 PM Estimated Blood Loss: Estimated blood loss: none.
[2020-02-21 16:02] VITALS: BP 156/86
== END 2020-02-21 15:58 | disposition home or self-care (01) ==
LOC: M OPP 13:22
PROVIDERS: ATTEND Internal Medicine Gastroenterology
DX: K22.8 Other specified diseases of esophagus (principal); K22.70 Barrett's esophagus without dysplasia; I10 Essential (primary) hypertension; I25.10 Atherosclerotic heart disease of native coronary artery without angina pectoris; K21.9 Gastro-esophageal reflux disease without esophagitis; Z79.82 Long term (current) use of aspirin; Z79.899 Other long term (current) drug therapy; Z79.891 Long term (current) use of opiate analgesic; Z80.0 Family history of malignant neoplasm of digestive organs; Z88.2 Allergy status to sulfonamides; Z88.8 Allergy status to other drugs, medicaments and biological substances; Z91.010 Allergy to peanuts; Z95.5 Presence of coronary angioplasty implant and graft

== ENCOUNTER → 2020-03-06 | Outpatient (REF) | payer MEDICARE, OTHER ==
[~2020-03-06] MED LIST changes: -LIDOCAINE 2% 100MG/5ML SDV (FOR ANES.) As Ordered ONE; -NS 1,000 ML IV ONE; -propofoL 200 MG/20 ML VIAL As Ordered ONE
[2020-03-06 16:56] LABS: PERCENT SATURATION 38.9 % (13.2-45.0)
== END ==
LOC: M LAB REF 16:21
PROVIDERS: ATTEND Nurse Practitioner Adult Health
DX: D64.9 Anemia, unspecified (principal)

== ENCOUNTER → 2021-05-06 | Outpatient (CLI) | payer MEDICARE, OTHER ==
[~2021-05-06] MED LIST changes: -AMIT10TA PO; +AMIT10TA7 PO; +ERGO500029; +GABA-282; -GABA-843; +ISOS1TAB36 PO; -ISOS60TA2 PO; +LISI10TA22 PO; -LISI10TA4 PO; +OMEP40CA4 PO; -OMEP40CA97 PO; -VITA50005
== END ==
LOC: M PAIN 14:00
PROVIDERS: ATTEND Nurse Practitioner Family
DX: M79.10 Myalgia, unspecified site (principal); Z86.59 Personal history of other mental and behavioral disorders; Z88.2 Allergy status to sulfonamides; Z88.8 Allergy status to other drugs, medicaments and biological substances; Z91.010 Allergy to peanuts; E66.01 Morbid (severe) obesity due to excess calories; Z68.41 Body mass index [BMI] 40.0-44.9, adult; Z79.82 Long term (current) use of aspirin; Z79.899 Other long term (current) drug therapy

== ENCOUNTER → 2021-05-27 | Outpatient (CLI) | payer MEDICARE, BC, OTHER ==
[~2021-05-27] MED LIST changes: -OMEP-221; +OMEP40CA5
== END ==
LOC: M RAD 13:09
PROVIDERS: ATTEND Nurse Practitioner Family
DX: M51.36 Other intervertebral disc degeneration, lumbar region (principal); M48.061 Spinal stenosis, lumbar region without neurogenic claudication; M79.10 Myalgia, unspecified site

== ENCOUNTER → 2021-06-10 | Outpatient (CLI) | payer MEDICARE, OTHER ==
[~2021-06-10] MED LIST changes: -ERGO500029; +ERGO500029 PO; +HYDR-3363 PO; -HYDR-3719; +HYDR-3719 PO
== END ==
LOC: M PAIN 14:30
PROVIDERS: ATTEND Anesthesiology
DX: M51.16 Intervertebral disc disorders with radiculopathy, lumbar region (principal); G89.29 Other chronic pain; E66.01 Morbid (severe) obesity due to excess calories; Z68.41 Body mass index [BMI] 40.0-44.9, adult; Z79.82 Long term (current) use of aspirin; Z79.899 Other long term (current) drug therapy

== ENCOUNTER → 2021-06-13 | Outpatient (CLI) | payer MEDICARE, BC, OTHER | LOC: M LABSMTC 14:05 | PROVIDERS: ATTEND Anesthesiology | DX: Z01.818 Encounter for other preprocedural examination (principal); Z11.52 Encounter for screening for COVID-19 ==

== ENCOUNTER 2021-06-18 10:08 | Day surgery (SDC) | payer MEDICARE, BC, OTHER ==
[~2021-06-18] VITALS: Ht 154.9 cm; Wt 73.0 kg
[~2021-06-18 10:08] MED LIST changes: +CYCLOPENTOLATE 1% OPHTH SOLN 2 ML BTL OS SCH; +FLURBIPROFEN 0.03% OPHTH SOLN 2.5 ML OS SCH; +LIDOCAINE 1% SDV 5ML VIAL As Ordered ONE; +LR 1,000 ML IV SCH; +MAXITROL OPHTH SUSP 5 ML As Ordered ONE; +MIDAZOLAM INJ 2MG/2ML VIAL (J2250 PER 1MG) As Ordered ONE; +PHENYLEPHRINE 2.5% OPHTH SOL 2ML OS SCH; +TETRACAINE 0.5% OPHTH SOLN 4ML OS SCH; +fentaNYL 100 MCG/2 ML INJECTION As Ordered ONE
[2021-06-18 12:50] VITALS: BP 151/69
== END 2021-06-18 12:55 | disposition home or self-care (01) ==
LOC: M SDC 10:08
PROVIDERS: ATTEND Ophthalmology
DX: H25.12 Age-related nuclear cataract, left eye (principal); I10 Essential (primary) hypertension; E78.5 Hyperlipidemia, unspecified; M32.9 Systemic lupus erythematosus, unspecified; M19.90 Unspecified osteoarthritis, unspecified site; Z88.2 Allergy status to sulfonamides; Z88.8 Allergy status to other drugs, medicaments and biological substances; Z79.899 Other long term (current) drug therapy
CPT/HCPCS: 66984; J2250; J3010; V2632

== ENCOUNTER → 2021-07-11 | Outpatient (CLI) | payer MEDICARE, BC, OTHER ==
[~2021-07-11] MED LIST changes: -CYCLOPENTOLATE 1% OPHTH SOLN 2 ML BTL OS SCH; -FLURBIPROFEN 0.03% OPHTH SOLN 2.5 ML OS SCH; -LIDOCAINE 1% SDV 5ML VIAL As Ordered ONE; -LR 1,000 ML IV SCH; -MAXITROL OPHTH SUSP 5 ML As Ordered ONE; -MIDAZOLAM INJ 2MG/2ML VIAL (J2250 PER 1MG) As Ordered ONE; -PHENYLEPHRINE 2.5% OPHTH SOL 2ML OS SCH; -TETRACAINE 0.5% OPHTH SOLN 4ML OS SCH; -fentaNYL 100 MCG/2 ML INJECTION As Ordered ONE
== END ==
LOC: M LABSMTC 11:33
PROVIDERS: ATTEND Anesthesiology
DX: Z01.812 Encounter for preprocedural laboratory examination (principal); Z20.822 Contact with and (suspected) exposure to COVID-19

== ENCOUNTER 2021-07-16 12:06 | Day surgery (SDC) | payer MEDICARE, BC, OTHER ==
[~2021-07-16] VITALS: Ht 154.9 cm; Wt 74.1 kg
[~2021-07-16 12:06] MED LIST changes: +LIDOCAINE 1% SDV 5ML VIAL As Ordered ONE; +LR 1,000 ML IV SCH; +MIDAZOLAM INJ 2MG/2ML VIAL (J2250 PER 1MG) As Ordered ONE; +TOBRADEX OPHTH SUSP 2.5 ML As Ordered ONE; +fentaNYL 100 MCG/2 ML INJECTION As Ordered ONE
[2021-07-16] MEDS ORDERED: PHENYLEPHRINE 2.5% OPHTH SOL 2ML OD SCH (12:45)
[2021-07-16] MEDS ORDERED: CYCLOPENTOLATE 1% OPHTH SOLN 2 ML BTL OD SCH (12:45)
[2021-07-16] MEDS ORDERED: FLURBIPROFEN 0.03% OPHTH SOLN 2.5 ML OD SCH (12:45)
[2021-07-16] MEDS ORDERED: AMOX875T PO (12:54)
[2021-07-16] MEDS: TETRACAINE 0.5% OPHTH SOLN 4ML OD SCH ×2 (13:02→14:43)
[2021-07-16] MEDS ORDERED: DUOVISC (0.50ML VISCOAT/0.85ML PROVISC) OPHTH KIT As Ordered ONE (14:50)
[2021-07-16] MEDS ORDERED: ACETYLCHOLINE OPHTH SOLN 1% 2ML (MIOCHOL-E) As Ordered ONE (15:08)
[2021-07-16 15:38] VITALS: BP 152/72
== END 2021-07-16 15:40 | disposition home or self-care (01) ==
LOC: M SDC 12:06
PROVIDERS: ATTEND Ophthalmology
DX: H25.11 Age-related nuclear cataract, right eye (principal); I25.2 Old myocardial infarction; Z98.61 Coronary angioplasty status; I25.10 Atherosclerotic heart disease of native coronary artery without angina pectoris; I10 Essential (primary) hypertension; E78.5 Hyperlipidemia, unspecified; K21.9 Gastro-esophageal reflux disease without esophagitis; M32.9 Systemic lupus erythematosus, unspecified; M81.0 Age-related osteoporosis without current pathological fracture; Z86.718 Personal history of other venous thrombosis and embolism; Z88.2 Allergy status to sulfonamides; Z91.010 Allergy to peanuts; Z79.899 Other long term (current) drug therapy; F32.9 Major depressive disorder, single episode, unspecified; F41.9 Anxiety disorder, unspecified
CPT/HCPCS: 66984; J2250; J3010; V2632

== ENCOUNTER → 2021-08-27 | Outpatient (CLI) | payer MEDICARE, OTHER ==
[~2021-08-27] MED LIST changes: +AMOX875T PO; +FLUTISP; -LIDOCAINE 1% SDV 5ML VIAL As Ordered ONE; -LR 1,000 ML IV SCH; -MIDAZOLAM INJ 2MG/2ML VIAL (J2250 PER 1MG) As Ordered ONE; +PROB1CAP10 PO; +PROM25TA12 PO; -TOBRADEX OPHTH SUSP 2.5 ML As Ordered ONE; +VIIB10TA PO; +Vitamin D PO; -fentaNYL 100 MCG/2 ML INJECTION As Ordered ONE
== END ==
LOC: M LABSMTC 09:43
PROVIDERS: ATTEND Anesthesiology
DX: Z01.812 Encounter for preprocedural laboratory examination (principal); Z20.822 Contact with and (suspected) exposure to COVID-19

== ENCOUNTER → 2021-09-01 | Outpatient (CLI) | payer MEDICARE, BC, OTHER ==
[~2021-09-01] MED LIST changes: +ISOVUE-M 300 61% 15ML VIAL As Ordered ONE; +LIDOCAINE 1% SDV 30ML VIAL As Ordered ONE; +diazePAM 5MG TABLET As Ordered ONE; +methylPREDNISolone SUSP 40MG/ML 1ML VIAL (DEPO MEDROL) As Ordered ONE
[2021-09-01 10:08] VITALS: BP 133/61
== END ==
LOC: M IRPRO 08:33
PROVIDERS: ATTEND Anesthesiology
DX: M51.16 Intervertebral disc disorders with radiculopathy, lumbar region (principal); G89.29 Other chronic pain; M19.90 Unspecified osteoarthritis, unspecified site; Z88.0 Allergy status to penicillin; Z88.2 Allergy status to sulfonamides; Z88.8 Allergy status to other drugs, medicaments and biological substances; Z91.010 Allergy to peanuts; Z86.59 Personal history of other mental and behavioral disorders
CPT/HCPCS: 62323; J1030; Q9967

== ENCOUNTER → 2021-10-08 | Outpatient (CLI) | payer MEDICARE, OTHER ==
[~2021-10-08] MED LIST changes: -ISOVUE-M 300 61% 15ML VIAL As Ordered ONE; -LIDOCAINE 1% SDV 30ML VIAL As Ordered ONE; -diazePAM 5MG TABLET As Ordered ONE; -methylPREDNISolone SUSP 40MG/ML 1ML VIAL (DEPO MEDROL) As Ordered ONE
== END ==
LOC: M PAIN 13:45
PROVIDERS: ATTEND Anesthesiology
DX: G89.4 Chronic pain syndrome (principal); M79.10 Myalgia, unspecified site; Z86.59 Personal history of other mental and behavioral disorders; Z88.1 Allergy status to other antibiotic agents; Z88.2 Allergy status to sulfonamides; Z88.8 Allergy status to other drugs, medicaments and biological substances; Z91.010 Allergy to peanuts; E66.01 Morbid (severe) obesity due to excess calories; Z68.41 Body mass index [BMI] 40.0-44.9, adult; Z79.899 Other long term (current) drug therapy

== ENCOUNTER → 2022-02-02 | Outpatient (CLI) | payer MEDICARE, OTHER | LOC: M PAIN 14:15 | PROVIDERS: ATTEND Nurse Practitioner Family | DX: M79.10 Myalgia, unspecified site (principal); M54.2 Cervicalgia; G89.29 Other chronic pain; I10 Essential (primary) hypertension; Z86.59 Personal history of other mental and behavioral disorders; Z88.1 Allergy status to other antibiotic agents; Z88.2 Allergy status to sulfonamides; Z88.8 Allergy status to other drugs, medicaments and biological substances; Z91.010 Allergy to peanuts; E66.01 Morbid (severe) obesity due to excess calories; Z68.41 Body mass index [BMI] 40.0-44.9, adult; Z79.899 Other long term (current) drug therapy ==

== ENCOUNTER → 2022-02-17 | Outpatient (CLI) | payer MEDICARE, BC, OTHER | LOC: M LABSMTC 11:13 | PROVIDERS: ATTEND Anesthesiology | DX: Z01.812 Encounter for preprocedural laboratory examination (principal); Z20.822 Contact with and (suspected) exposure to COVID-19 ==

== ENCOUNTER → 2022-02-22 | Outpatient (CLI) | payer MEDICARE, OTHER ==
[~2022-02-22] MED LIST changes: +BUPIVACAINE HCL 0.25% 10ML VIAL As Ordered ONE; +BUPIVACAINE HCL 0.25% 30ML VIAL As Ordered ONE; +TRIAMCINOLONE ACETONIDE SUSP 40 MG/ML VIAL (J3301) As Ordered ONE
== END ==
LOC: M PAIN 08:30
PROVIDERS: ATTEND Anesthesiology
DX: M79.18 Myalgia, other site (principal); G89.29 Other chronic pain; I25.2 Old myocardial infarction; G47.30 Sleep apnea, unspecified; I10 Essential (primary) hypertension; Z86.59 Personal history of other mental and behavioral disorders; Z88.1 Allergy status to other antibiotic agents; Z88.2 Allergy status to sulfonamides; Z88.8 Allergy status to other drugs, medicaments and biological substances; Z91.010 Allergy to peanuts; E66.01 Morbid (severe) obesity due to excess calories; Z68.41 Body mass index [BMI] 40.0-44.9, adult; Z79.899 Other long term (current) drug therapy
CPT/HCPCS: 20553; J3301

== ENCOUNTER → 2022-02-25 | Outpatient (CLI) | payer MEDICARE, OTHER ==
[~2022-02-25] MED LIST changes: -BUPIVACAINE HCL 0.25% 10ML VIAL As Ordered ONE; -BUPIVACAINE HCL 0.25% 30ML VIAL As Ordered ONE; -TRIAMCINOLONE ACETONIDE SUSP 40 MG/ML VIAL (J3301) As Ordered ONE
== END ==
LOC: M PAIN 14:15
PROVIDERS: ATTEND Nurse Practitioner Family
DX: M51.16 Intervertebral disc disorders with radiculopathy, lumbar region (principal); G89.29 Other chronic pain; I10 Essential (primary) hypertension; Z86.59 Personal history of other mental and behavioral disorders; Z88.1 Allergy status to other antibiotic agents; Z88.2 Allergy status to sulfonamides; Z88.8 Allergy status to other drugs, medicaments and biological substances; E66.01 Morbid (severe) obesity due to excess calories; Z68.41 Body mass index [BMI] 40.0-44.9, adult; Z79.891 Long term (current) use of opiate analgesic; Z79.899 Other long term (current) drug therapy

== ENCOUNTER → 2022-03-09 | Outpatient (CLI) | payer MEDICARE, OTHER | LOC: M PAIN 11:30 | PROVIDERS: ATTEND Nurse Practitioner Family | DX: M79.10 Myalgia, unspecified site (principal); G89.29 Other chronic pain; I10 Essential (primary) hypertension; Z86.59 Personal history of other mental and behavioral disorders; Z88.1 Allergy status to other antibiotic agents; Z88.2 Allergy status to sulfonamides; Z88.8 Allergy status to other drugs, medicaments and biological substances; E66.01 Morbid (severe) obesity due to excess calories; Z68.41 Body mass index [BMI] 40.0-44.9, adult; Z79.891 Long term (current) use of opiate analgesic; Z79.899 Other long term (current) drug therapy ==

== ENCOUNTER → 2022-03-09 | Outpatient (CLI) | payer MEDICARE, BC, OTHER | LOC: M PLAIMG 15:25 | PROVIDERS: ATTEND Nurse Practitioner Family | DX: M50.223 Other cervical disc displacement at C6-C7 level (principal); M50.222 Other cervical disc displacement at C5-C6 level; M50.21 Other cervical disc displacement, high cervical region | CPT/HCPCS: 72141; G0463 ==

== ENCOUNTER → 2022-04-21 | Outpatient (REF) | payer MEDICARE, OTHER ==
[2022-04-21 19:07] LABS: FERRITIN 24.1 NG/ML (7.3-270.7)
== END ==
LOC: M LAB REF 17:08
PROVIDERS: ATTEND Nurse Practitioner Adult Health
DX: D64.9 Anemia, unspecified (principal)

== ENCOUNTER → 2022-05-11 | Outpatient (CLI) | payer MEDICARE, OTHER | LOC: M PAIN 13:45 | PROVIDERS: ATTEND Nurse Practitioner Family | DX: M79.10 Myalgia, unspecified site (principal); G89.29 Other chronic pain; R73.03 Prediabetes; I10 Essential (primary) hypertension; Z86.59 Personal history of other mental and behavioral disorders; Z88.1 Allergy status to other antibiotic agents; Z88.2 Allergy status to sulfonamides; Z88.8 Allergy status to other drugs, medicaments and biological substances; E66.01 Morbid (severe) obesity due to excess calories; Z68.41 Body mass index [BMI] 40.0-44.9, adult; Z79.891 Long term (current) use of opiate analgesic; Z79.899 Other long term (current) drug therapy ==

== ENCOUNTER → 2022-05-24 | Outpatient (CLI) | payer MEDICARE, BC, OTHER | LOC: M LABSMTC 11:22 | PROVIDERS: ATTEND Anesthesiology | DX: Z01.812 Encounter for preprocedural laboratory examination (principal); Z11.52 Encounter for screening for COVID-19 ==

== ENCOUNTER → 2022-05-28 | Outpatient (CLI) | payer MEDICARE, OTHER ==
[~2022-05-28] MED LIST changes: +ISOVUE-M 300 61% 15ML VIAL As Ordered ONE; +LIDOCAINE 1% SDV 30ML VIAL As Ordered ONE; +NORCO, ANEXSIA 5/325MG TABLET (HYDROcodone/ACETAMINOPHEN) As Ordered ONE; +methylPREDNISolone SUSP 40MG/ML 1ML VIAL (DEPO MEDROL) As Ordered ONE
== END ==
LOC: M PAIN 10:00
PROVIDERS: ATTEND Anesthesiology
DX: M51.16 Intervertebral disc disorders with radiculopathy, lumbar region (principal); G89.29 Other chronic pain; I10 Essential (primary) hypertension; Z86.59 Personal history of other mental and behavioral disorders; Z88.2 Allergy status to sulfonamides; Z88.8 Allergy status to other drugs, medicaments and biological substances; Z91.010 Allergy to peanuts; E66.01 Morbid (severe) obesity due to excess calories; Z68.41 Body mass index [BMI] 40.0-44.9, adult; Z79.891 Long term (current) use of opiate analgesic; Z79.899 Other long term (current) drug therapy
CPT/HCPCS: 62323; Q9967

== ENCOUNTER → 2022-06-10 | Outpatient (CLI) | payer MEDICARE, OTHER ==
[~2022-06-10] MED LIST changes: -ISOVUE-M 300 61% 15ML VIAL As Ordered ONE; -LIDOCAINE 1% SDV 30ML VIAL As Ordered ONE; -NORCO, ANEXSIA 5/325MG TABLET (HYDROcodone/ACETAMINOPHEN) As Ordered ONE; -methylPREDNISolone SUSP 40MG/ML 1ML VIAL (DEPO MEDROL) As Ordered ONE
== END ==
LOC: M LABSMTC 11:34
PROVIDERS: ATTEND Anesthesiology
DX: Z01.818 Encounter for other preprocedural examination (principal)

== ENCOUNTER → 2022-06-14 | Outpatient (CLI) | payer MEDICARE, BC ==
[~2022-06-14] MED LIST changes: +BUPIVACAINE HCL 0.25% 10ML VIAL As Ordered ONE; +BUPIVACAINE HCL 0.25% 30ML VIAL As Ordered ONE; +MONT-5 PO; -SING10TA32 PO; +TRIAMCINOLONE ACETONIDE SUSP 40MG/ML 1ML VIAL As Ordered ONE
== END ==
LOC: M PAIN 16:00
PROVIDERS: ATTEND Anesthesiology
DX: M79.18 Myalgia, other site (principal); G89.29 Other chronic pain; I10 Essential (primary) hypertension; Z86.59 Personal history of other mental and behavioral disorders; Z88.1 Allergy status to other antibiotic agents; Z88.2 Allergy status to sulfonamides; Z88.8 Allergy status to other drugs, medicaments and biological substances; Z91.010 Allergy to peanuts; E66.01 Morbid (severe) obesity due to excess calories; Z68.41 Body mass index [BMI] 40.0-44.9, adult; Z79.891 Long term (current) use of opiate analgesic; Z79.899 Other long term (current) drug therapy
CPT/HCPCS: 20553; J3301

== ENCOUNTER → 2022-06-29 | Outpatient (CLI) | payer MEDICARE, BC ==
[~2022-06-29] MED LIST changes: -BUPIVACAINE HCL 0.25% 10ML VIAL As Ordered ONE; -BUPIVACAINE HCL 0.25% 30ML VIAL As Ordered ONE; -TRIAMCINOLONE ACETONIDE SUSP 40MG/ML 1ML VIAL As Ordered ONE
== END ==
LOC: M TMPAIN 15:45 → M PAIN 15:45
PROVIDERS: ATTEND Anesthesiology
DX: M54.2 Cervicalgia (principal); M54.6 Pain in thoracic spine; M79.10 Myalgia, unspecified site; I10 Essential (primary) hypertension; Z86.59 Personal history of other mental and behavioral disorders; Z95.2 Presence of prosthetic heart valve; Z95.5 Presence of coronary angioplasty implant and graft; Z88.2 Allergy status to sulfonamides; Z88.8 Allergy status to other drugs, medicaments and biological substances; Z79.891 Long term (current) use of opiate analgesic; Z79.899 Other long term (current) drug therapy

== ENCOUNTER 2022-10-23 23:12 | Emergency (ER) | payer MEDICARE, BC, OTHER ==
[~2022-10-23 23:12] MED LIST changes: +FLUT50SP17; -FLUTISP
[2022-10-24 00:38] LABS: BASO # 0.1 10^3/uL (0.0-0.2); BASO % 0.5 % (0.0-1.0); EOS # 0.2 10^3/uL (0.0-0.5); EOS % 2.5 % (0.0-3.0); HEMATOCRIT 36.6 % (36.0-47.0); HEMOGLOBIN 11.5 g/dl (12.0-15.5); LYMPH % 21.5 % (24.0-44.0); MEAN CORPUSCULAR HEMOGLOBIN 19.7 pg (27.0-33.0); MEAN CORPUSCULAR HGB CONC 31.4 g/dl (32.0-36.5); MEAN CORPUSCULAR VOLUME 62.6 fl (80.0-96.0); MONO # 0.8 10^3/uL (0.0-0.8); MONO % 8.3 % (2.0-8.0); NEUTROPHILS # 6.1 10^3/uL (1.5-8.5); NEUTROPHILS % 66.7 % (36.0-66.0); PLATELET COUNT, AUTOMATED 162 10^3/uL (150-450); RED BLOOD COUNT 5.85 10^6/uL (4.00-5.40); WHITE BLOOD COUNT 9.2 10^3/uL (4.0-10.0)
[2022-10-24 00:50] LABS: INR 1.02; PARTIAL THROMBOPLASTIN TIME 30.7 SECONDS (24.8-34.2); PROTHROMBIN TIME 13.6 SECONDS (12.5-14.5)
[2022-10-24 01:00] LABS: ALBUMIN 3.9 G/DL (3.2-5.2); ALKALINE PHOSPHATASE 90 U/L (46-116); ALT/SGPT 27 U/L (7.0-40); AST/SGOT 62 U/L (<34); BILIRUBIN,DIRECT 0.2 MG/DL (<0.4); BILIRUBIN,TOTAL 0.6 MG/DL (0.3-1.2); BLOOD UREA NITROGEN 14 MG/DL (9-23); CALCIUM LEVEL 9.1 MG/DL (8.3-10.6); CARBON DIOXIDE LEVEL 23 MMOL/L (20-31); CHLORIDE LEVEL 105 MMOL/L (98-107); CK-MB VALUE MASS < 1.0 NG/ML (<3.6); CPK CREATINE PHOSPHOKINASE 53 U/L (34-145); CREATININE FOR GFR 0.83 MG/DL (0.55-1.30); FREE T4 1.04 NG/DL (0.89-1.76); GLOMERULAR FILTRATION RATE > 60.0 (>39); GLUCOSE, FASTING 101 MG/DL (74-106); MB/CK RELATIVE INDEX 1.88 (< OR =4); POTASSIUM SERUM 4.8 MMOL/L (3.5-5.1); SODIUM LEVEL 137 MMOL/L (136-145); THYROID STIMULATING HORMONE 1.447 uIU/ML (0.55-4.78); TOTAL PROTEIN 6.8 G/DL (5.7-8.2)
[2022-10-24] MEDS ORDERED: ASPIRIN 81MG CHEW TABLET PO ONE (01:15)
[2022-10-24] MEDS ORDERED: ISOVUE-370 76% 100ML VIAL As Ordered ONE (01:29)
[2022-10-24 01:46] LABS: LIPASE 35 U/L (12-53)
[2022-10-24 01:59] LABS: CK-MB VALUE MASS < 1.0 NG/ML (<3.6); CPK CREATINE PHOSPHOKINASE 30 U/L (34-145); MB/CK RELATIVE INDEX 3.33 (< OR =4)
[2022-10-24 03:11] LABS: CK-MB VALUE MASS < 1.0 NG/ML (<3.6)
[2022-10-24 03:14] LABS: CPK CREATINE PHOSPHOKINASE 29 U/L (34-145); MB/CK RELATIVE INDEX 3.44 (< OR =4)
[2022-10-24 09:10] VITALS: BP 173/77; TEMP 97; O2SAT 96
== END 2022-10-24 09:13 | disposition short-term general hospital (02) ==
LOC: M ED 23:12 → EDBD 23:12 → M ED 10-24 09:13
DX: I20.0 Unstable angina (principal); I44.4 Left anterior fascicular block; I25.2 Old myocardial infarction; K21.9 Gastro-esophageal reflux disease without esophagitis; I10 Essential (primary) hypertension; F41.9 Anxiety disorder, unspecified; M32.9 Systemic lupus erythematosus, unspecified; M54.2 Cervicalgia; Z88.0 Allergy status to penicillin; Z88.2 Allergy status to sulfonamides; Z88.8 Allergy status to other drugs, medicaments and biological substances; Z91.010 Allergy to peanuts; Z79.82 Long term (current) use of aspirin; Z79.899 Other long term (current) drug therapy
CPT/HCPCS: 36415; 71045; 71275; 74177; 80048; 80076; 82550; 82553; 83690; 84439; 84443; 84484; 85025; 85610; 85730; 93005; 93041; 94760; 99285; Q9967

== ENCOUNTER → 2022-10-29 | Outpatient (REF) | payer MEDICARE, BC, OTHER ==
[2022-10-29 17:08] LABS: PERCENT SATURATION 15.1 % (13.2-45.0)
[2022-10-29 17:12] LABS: FERRITIN 19.8 NG/ML (7.3-270.7)
== END ==
LOC: M LAB REF 16:12
PROVIDERS: ATTEND Nurse Practitioner Family
DX: D64.9 Anemia, unspecified (principal)

== ENCOUNTER → 2023-05-12 | Outpatient (CLI) | payer MEDICARE, BC ==
[~2023-05-12] MED LIST changes: -FLUT50SP17; +FLUTISP
== END ==
LOC: M PAIN 15:00
PROVIDERS: ATTEND Nurse Practitioner Family
DX: M51.16 Intervertebral disc disorders with radiculopathy, lumbar region (principal); G89.29 Other chronic pain; Z88.1 Allergy status to other antibiotic agents; Z88.2 Allergy status to sulfonamides; Z88.8 Allergy status to other drugs, medicaments and biological substances; Z91.010 Allergy to peanuts; E66.01 Morbid (severe) obesity due to excess calories; Z68.41 Body mass index [BMI] 40.0-44.9, adult; Z79.891 Long term (current) use of opiate analgesic; Z79.899 Other long term (current) drug therapy

== ENCOUNTER → 2023-06-23 | Outpatient (CLI) | payer MEDICARE, BC, OTHER ==
[~2023-06-23] MED LIST changes: +ISOVUE-M 300 61% 15ML VIAL As Ordered ONE; +LIDOCAINE 1% SDV 30ML VIAL As Ordered ONE; +methylPREDNISolone SUSP 40MG/ML 1ML VIAL (DEPO MEDROL) As Ordered ONE
== END ==
LOC: M PAIN 13:00
PROVIDERS: ATTEND Anesthesiology
DX: M51.16 Intervertebral disc disorders with radiculopathy, lumbar region (principal); M54.2 Cervicalgia; G89.29 Other chronic pain; I10 Essential (primary) hypertension; I25.10 Atherosclerotic heart disease of native coronary artery without angina pectoris; Z79.891 Long term (current) use of opiate analgesic; Z79.899 Other long term (current) drug therapy; Z95.5 Presence of coronary angioplasty implant and graft
CPT/HCPCS: 62323; J1030; Q9967

== ENCOUNTER → 2023-07-08 | Outpatient (CLI) | payer MEDICARE, BC ==
[~2023-07-08] MED LIST changes: +CVS1CAP2 PO; +GABA-1171 PO; -ISOVUE-M 300 61% 15ML VIAL As Ordered ONE; -LIDOCAINE 1% SDV 30ML VIAL As Ordered ONE; +OXYC7.5T3 PO; +REPA140I2 SC; +TOPI-21 PO; +VITA200038 PO; +collagen PO; -methylPREDNISolone SUSP 40MG/ML 1ML VIAL (DEPO MEDROL) As Ordered ONE
== END ==
LOC: M PAIN 15:00
PROVIDERS: ATTEND Nurse Practitioner Family
DX: M79.10 Myalgia, unspecified site (principal); G89.29 Other chronic pain; I10 Essential (primary) hypertension; I25.119 Atherosclerotic heart disease of native coronary artery with unspecified angina pectoris; Z79.82 Long term (current) use of aspirin; Z79.891 Long term (current) use of opiate analgesic; Z79.899 Other long term (current) drug therapy; Z88.0 Allergy status to penicillin; Z88.2 Allergy status to sulfonamides; Z88.1 Allergy status to other antibiotic agents; Z88.8 Allergy status to other drugs, medicaments and biological substances; Z91.010 Allergy to peanuts

== ENCOUNTER 2023-09-15 14:22 | Emergency (ER) | payer MEDICARE, BC ==
[~2023-09-15] VITALS: Ht 154.9 cm; Wt 68.2 kg
[~2023-09-15 14:22] MED LIST changes: +BUPR-597 PO; -BUPR300T92 PO
[2023-09-15] MEDS ORDERED: OXYC-517 PO (16:48)
[2023-09-15] MEDS ORDERED: SPIR-10 PO (16:48)
[2023-09-15] MEDS ORDERED: FAMO1TAB11 PO (16:48)
[2023-09-15] MEDS: oxyCODONE 5MG TAB PO ONE (17:42)
[2023-09-15 18:30] VITALS: BP 167/76; TEMP 98.3; O2SAT 95
== END 2023-09-15 18:32 | disposition home or self-care (01) ==
LOC: M ED 14:22
DX: S09.90XA Unspecified injury of head, initial encounter (principal); M25.511 Pain in right shoulder; W01.118A Fall on same level from slipping, tripping and stumbling with subsequent striking against other sharp object, initial encounter; M43.22 Fusion of spine, cervical region; M47.812 Spondylosis without myelopathy or radiculopathy, cervical region; M41.82 Other forms of scoliosis, cervical region; R51.9 Headache, unspecified; F32.A Depression, unspecified; F41.9 Anxiety disorder, unspecified; I25.2 Old myocardial infarction; Y92.009 Unspecified place in unspecified non-institutional (private) residence as the place of occurrence of the external cause; Y93.89 Activity, other specified; Y99.9 Unspecified external cause status; Z86.79 Personal history of other diseases of the circulatory system; Z88.0 Allergy status to penicillin; Z88.2 Allergy status to sulfonamides; Z88.8 Allergy status to other drugs, medicaments and biological substances; Z91.010 Allergy to peanuts; Z79.82 Long term (current) use of aspirin; Z79.891 Long term (current) use of opiate analgesic; Z79.899 Other long term (current) drug therapy

== ENCOUNTER → 2024-02-06 | Day surgery (SDC) | payer MEDICARE, BC ==
[~2024-02-06] VITALS: Ht 157.5 cm; Wt 70.3 kg
[~2024-02-06] MED LIST changes: +AMIT25TA19 PO; +CO Q10CA PO; +FAMO1TAB11 PO; +GABA-1172; -GABA-282; +LIDOCAINE 2% 100MG/5ML SDV (FOR ANES.) As Ordered ONE; +MORP30TASA PO; +NS 1,000 ML IV ONE; +OXYC-517 PO; +SPIR-10 PO; +fentaNYL 100 MCG/2 ML INJECTION As Ordered ONE; +propofoL 200 MG/20 ML VIAL As Ordered ONE
[2024-02-06 15:58] VITALS: TEMP 96.9
[2024-02-06 16:19] VITALS: BP 125/58; O2SAT 97
== END | disposition home or self-care (01) ==
LOC: M OPP 12:19
PROVIDERS: ATTEND Internal Medicine Gastroenterology
DX: K31.811 Angiodysplasia of stomach and duodenum with bleeding (principal); I85.00 Esophageal varices without bleeding; D12.4 Benign neoplasm of descending colon; K64.8 Other hemorrhoids; K57.30 Diverticulosis of large intestine without perforation or abscess without bleeding; R10.84 Generalized abdominal pain; K59.00 Constipation, unspecified; Z87.19 Personal history of other diseases of the digestive system; I25.10 Atherosclerotic heart disease of native coronary artery without angina pectoris; I25.2 Old myocardial infarction; I10 Essential (primary) hypertension; E78.00 Pure hypercholesterolemia, unspecified; M32.9 Systemic lupus erythematosus, unspecified; Z79.899 Other long term (current) drug therapy; Z95.5 Presence of coronary angioplasty implant and graft; Z95.1 Presence of aortocoronary bypass graft; Z90.710 Acquired absence of both cervix and uterus; Z88.0 Allergy status to penicillin; Z88.2 Allergy status to sulfonamides; Z88.6 Allergy status to analgesic agent; Z91.010 Allergy to peanuts; Z90.49 Acquired absence of other specified parts of digestive tract; G43.909 Migraine, unspecified, not intractable, without status migrainosus; G62.9 Polyneuropathy, unspecified
CPT/HCPCS: 43255; 45385; 88305; J3010

== ENCOUNTER → 2024-03-08 | Outpatient (REF) | payer MEDICARE, BC ==
[~2024-03-08] MED LIST changes: -LIDOCAINE 2% 100MG/5ML SDV (FOR ANES.) As Ordered ONE; -NS 1,000 ML IV ONE; -fentaNYL 100 MCG/2 ML INJECTION As Ordered ONE; -propofoL 200 MG/20 ML VIAL As Ordered ONE
[2024-03-08 19:56] LABS: TOTAL IRON BINDING CAPACITY 417 UG/DL (250-425)
[2024-03-08 19:57] LABS: IRON (FE) 19 UG/DL (50-170); PERCENT SATURATION 4.6 % (13.2-45.0)
[2024-03-08 19:58] LABS: FERRITIN 8.3 NG/ML (7.3-270.7)
[2024-03-08 20:10] LABS: HEPATITIS B SURFACE ANTIGEN NEGATIVE (NEGATIVE)
[2024-03-08 20:32] LABS: HEPATITIS B CORE ANTIBODY IGM NEGATIVE (NEGATIVE); HEPATITIS C VIRUS ABY INDEX 0.02 INDEX (<0.8)
== END ==
LOC: M LAB REF 17:42
PROVIDERS: ATTEND Nurse Practitioner Family
DX: K74.60 Unspecified cirrhosis of liver (principal)

== ENCOUNTER → 2024-04-02 | Outpatient (CLI) | payer MEDICARE, BC | LOC: M RAD 09:17 | PROVIDERS: ATTEND Physician Assistant Medical | DX: K74.60 Unspecified cirrhosis of liver (principal); R16.1 Splenomegaly, not elsewhere classified ==

== ENCOUNTER → 2024-04-03 | Outpatient (CLI) | payer MEDICARE, BC | LOC: M PLAIMG 15:21 | PROVIDERS: ATTEND Family Medicine | DX: I27.20 Pulmonary hypertension, unspecified (principal); R06.02 Shortness of breath; D64.9 Anemia, unspecified; I50.32 Chronic diastolic (congestive) heart failure ==

== ENCOUNTER → 2024-04-03 | Outpatient (REF) | payer MEDICARE, BC ==
[2024-04-03 17:26] LABS: FOLATE > 24.0 NG/ML (>5.4); VITAMIN B12 LEVEL 413 PG/ML (211-911)
== END ==
LOC: M LAB REF 16:18
PROVIDERS: ATTEND Family Medicine
DX: D64.9 Anemia, unspecified (principal); I50.32 Chronic diastolic (congestive) heart failure

== ENCOUNTER → 2024-04-04 | Outpatient (CLI) | payer MEDICARE, BC ==
[~2024-04-04] MED LIST changes: +NS 250 ML IV ONE
[2024-04-04] MEDS: diphenhydrAMINE 25MG CAP PO ONE (13:03)
[2024-04-04 13:17] VITALS: BP 130/72; TEMP 97.3; O2SAT 91
[2024-04-04 13:44] VITALS: BP 134/60; TEMP 98; O2SAT 90
[2024-04-04 14:44] VITALS: BP 156/70; TEMP 98; O2SAT 90
[2024-04-04 15:40] VITALS: BP 126/59; TEMP 98.3; O2SAT 91
[2024-04-04 17:07] VITALS: BP 146/65; TEMP 98.3; O2SAT 90
== END ==
LOC: M INFU 11:29
PROVIDERS: ATTEND Family Medicine
DX: D64.9 Anemia, unspecified (principal); Z88.6 Allergy status to analgesic agent; Z88.0 Allergy status to penicillin; Z88.2 Allergy status to sulfonamides; Z88.8 Allergy status to other drugs, medicaments and biological substances
CPT/HCPCS: 36430; 36592; 86850; 86900; 86901; 86920; P9016

== ENCOUNTER → 2024-04-24 | Outpatient (REF) | payer MEDICARE, OTHER ==
[~2024-04-24] MED LIST changes: -NS 250 ML IV ONE
[2024-04-24 17:58] LABS: FERRITIN 6.6 NG/ML (7.3-270.7)
== END ==
LOC: M LAB REF 17:24
PROVIDERS: ATTEND Nurse Practitioner Family
DX: D64.9 Anemia, unspecified (principal)

== ENCOUNTER → 2024-05-07 | Outpatient (REF) | payer MEDICARE, OTHER | LOC: M LAB REF 16:42 | PROVIDERS: ATTEND Physician Assistant Medical | DX: D50.9 Iron deficiency anemia, unspecified (principal) ==

== ENCOUNTER 2024-05-10 06:39 | Outpatient (CLI) | payer MEDICARE, BC ==
[2024-05-10] VITALS (7 sets, daily range): BP systolic 148–181; BP diastolic 64–86; TEMP 97.8–98.8; O2SAT 96–98
[~2024-05-10] VITALS: Ht 154.9 cm; Wt 70.9 kg
[2024-05-10] MEDS ORDERED: NS (Normal Saline) 0.9% 250 ML IV ONE (07:10)
[2024-05-10] MEDS: diphenhydrAMINE 25MG CAP PO ONE (09:51)
== END 2024-05-10 13:00 ==
LOC: M INFU 06:39
PROVIDERS: ATTEND Physician Assistant Medical
DX: D64.9 Anemia, unspecified (principal); Z88.0 Allergy status to penicillin; Z88.2 Allergy status to sulfonamides; Z88.8 Allergy status to other drugs, medicaments and biological substances; Z91.010 Allergy to peanuts
CPT/HCPCS: 36430; 86920; P9016

== ENCOUNTER → 2024-06-22 | Outpatient (REF) | payer MEDICARE, OTHER ==
[2024-06-22 14:04] LABS: PERCENT SATURATION 7.7 % (13.2-45.0)
[2024-06-22 14:07] LABS: FERRITIN 11.3 NG/ML (7.3-270.7)
== END ==
LOC: M LAB REF 12:59
PROVIDERS: ATTEND Nurse Practitioner Family
DX: D64.9 Anemia, unspecified (principal)

== ENCOUNTER → 2024-06-29 | Outpatient (CLI) | payer MEDICARE, BC | LOC: M RAD 13:55 | PROVIDERS: ATTEND Ophthalmology | DX: H05.20 Unspecified exophthalmos (principal); Z98.49 Cataract extraction status, unspecified eye ==

== ENCOUNTER 2024-08-07 09:47 | Day surgery (SDC) | payer MEDICARE, BC ==
[~2024-08-07] VITALS: Ht 154.9 cm; Wt 69.9 kg
[~2024-08-07 09:47] MED LIST changes: +LIDOCAINE 2% 100MG/5ML SDV (FOR ANES.) As Ordered ONE; +OMEP40CA5 PO; +RANO500T2 PO; +REST0.05; +VILA40TA PO; +propofoL 500 MG/50 ML VIAL As Ordered ONE
[2024-08-07] MEDS ORDERED: fentaNYL 100 MCG/2 ML INJECTION As Ordered ONE (10:57)
[2024-08-07 11:17] VITALS: TEMP 97.5
[2024-08-07 11:32] VITALS: BP 152/65; O2SAT 97
== END 2024-08-07 11:45 | disposition home or self-care (01) ==
LOC: M OPP 09:47
PROVIDERS: ATTEND Internal Medicine Gastroenterology
DX: D12.5 Benign neoplasm of sigmoid colon (principal); K57.30 Diverticulosis of large intestine without perforation or abscess without bleeding; K64.8 Other hemorrhoids; D50.9 Iron deficiency anemia, unspecified; K31.819 Angiodysplasia of stomach and duodenum without bleeding; I85.00 Esophageal varices without bleeding; K22.89 Other specified disease of esophagus; Z95.5 Presence of coronary angioplasty implant and graft; Z86.73 Personal history of transient ischemic attack (TIA), and cerebral infarction without residual deficits; I50.9 Heart failure, unspecified; Z88.2 Allergy status to sulfonamides; Z88.6 Allergy status to analgesic agent; Z88.0 Allergy status to penicillin; Z88.8 Allergy status to other drugs, medicaments and biological substances; Z91.010 Allergy to peanuts; Z79.51 Long term (current) use of inhaled steroids; Z79.891 Long term (current) use of opiate analgesic; Z79.899 Other long term (current) drug therapy; Z95.1 Presence of aortocoronary bypass graft
CPT/HCPCS: 43255; 45385; 88305; J3010

== ENCOUNTER → 2024-11-27 | Outpatient (CLI) | payer MEDICARE, BC ==
[~2024-11-27] MED LIST changes: +ALBUTEROL SULFATE 2.5 MG/0.5 ML INH CONCENTRATE NEB SOLN INH PRN; +AMIT10TA11 PO; -AMIT10TA7 PO; +BIOT5TAB3 PO; -BUPR-597 PO; +BUPR-766 PO; +EPINEPHrine INJ 1 MG/ML 1ML AMP IM PRN; +IRON SUCROSE 500 MG in NS 250 ML OVER 4 HRS IV ONE; +ISOS-18 PO; -ISOS30TAB PO; -LIDOCAINE 2% 100MG/5ML SDV (FOR ANES.) As Ordered ONE; +MAGN400C PO; +TOPI-256 PO; -TOPI25TA10 PO; +diphenhydrAMINE 50 MG/ML VIAL IV PRN; -propofoL 500 MG/50 ML VIAL As Ordered ONE
== END ==
LOC: M INFU 10:40
PROVIDERS: ATTEND Internal Medicine
DX: D50.9 Iron deficiency anemia, unspecified (principal)

== ENCOUNTER 2024-12-05 09:49 | Outpatient (CLI) | payer MEDICARE, BC ==
[~2024-12-05] VITALS: Ht 154.9 cm; Wt 69.0 kg
[~2024-12-05 09:49] MED LIST changes: -IRON SUCROSE 500 MG in NS 250 ML OVER 4 HRS IV ONE
[2024-12-05 10:00] VITALS: BP 148/67; O2SAT 96
[2024-12-05] MEDS: IRON SUCROSE 500 MG in NS 250 ML OVER 4 HRS IV ONE (10:25)
[2024-12-05 11:30] VITALS: BP 142/70; O2SAT 97
[2024-12-05 12:30] VITALS: BP 133/69; O2SAT 97
[2024-12-05 14:19] VITALS: BP 152/64; O2SAT 95
[2024-12-05 14:52] VITALS: BP 148/70; O2SAT 96
== END 2024-12-05 14:50 ==
LOC: M INFU 09:49
PROVIDERS: ATTEND Internal Medicine
DX: D50.9 Iron deficiency anemia, unspecified (principal); Z88.0 Allergy status to penicillin; Z88.2 Allergy status to sulfonamides; Z88.8 Allergy status to other drugs, medicaments and biological substances; Z91.010 Allergy to peanuts
CPT/HCPCS: 96365; 96366; 96375; J1756; J2919

== ENCOUNTER 2024-12-13 10:10 | Outpatient (CLI) | payer MEDICARE, BC ==
[~2024-12-13] VITALS: Ht 154.9 cm; Wt 69.0 kg
[2024-12-13 10:25] VITALS: BP 158/67; O2SAT 98
[2024-12-13] MEDS: IRON SUCROSE 500 MG in NS 250 ML OVER 4 HRS IV ONE (11:15)
[2024-12-13 12:30] VITALS: BP 147/71; O2SAT 97
[2024-12-13 13:30] VITALS: BP 154/81; O2SAT 99
[2024-12-13 14:30] VITALS: BP 144/72; O2SAT 100
[2024-12-13 15:26] VITALS: BP 152/70; O2SAT 98
== END 2024-12-13 15:30 ==
LOC: M INFU 10:10
PROVIDERS: ATTEND Internal Medicine
DX: D50.9 Iron deficiency anemia, unspecified (principal); Z88.0 Allergy status to penicillin; Z88.2 Allergy status to sulfonamides; Z88.8 Allergy status to other drugs, medicaments and biological substances; Z91.010 Allergy to peanuts
CPT/HCPCS: 96365; 96366; J1756

== ENCOUNTER → 2025-02-13 | Outpatient (REF) | payer MEDICARE, BC ==
[~2025-02-13] MED LIST changes: -ALBUTEROL SULFATE 2.5 MG/0.5 ML INH CONCENTRATE NEB SOLN INH PRN; -EPINEPHrine INJ 1 MG/ML 1ML AMP IM PRN; -diphenhydrAMINE 50 MG/ML VIAL IV PRN
[2025-02-13 15:54] LABS: PLATELET COUNT, AUTOMATED 189 10^3/uL (150-450)
[2025-02-13 16:04] LABS: INR 1.05
== END ==
LOC: M LAB REF 15:27
PROVIDERS: ATTEND Nurse Practitioner Family
DX: Z87.19 Personal history of other diseases of the digestive system (principal)

== ENCOUNTER → 2025-02-14 | Outpatient (REF) | payer MEDICARE, BC ==
[2025-02-14 18:31] LABS: BACTERIA, URINE AUTO 1+ (NEGATIVE); MUCUS, URINE SMALL (NEGATIVE); RBC, URINE AUTO 2 /HPF (0-3); SQUAMOUS EPITHELIAL CELL UR AU 2 /HPF (0-6); TRANSITIONAL EPITHELIAL AUTO 1 /HPF; WBC, URINE AUTO 4 /HPF (0-3)
== END ==
LOC: M LAB REF 17:13
PROVIDERS: ATTEND Nurse Practitioner Family
DX: R35.0 Frequency of micturition (principal)